=== PATIENT | female | born 1965 | race Caucasian/White ===

== ENCOUNTER 2017-12-04 10:00 | Outpatient (RCR) | payer BC, SELFPAY ==
--- NOTE | 2017-11-14 10:00 | PTTR_ITS ---
DATE: 11/14/17 SUBJECTIVE: Patient reports that she feels like the kineseotape has been helping. She was still wearing it upon arrival. Rates her pain a 4/10 overall over area of anatomical snuff box. Has not attempted to use a knife yet. States she has been doing her HEP. Has not been icing at home. Patient educated that she should be icing it at home 2-3 times per day and when its aggravated. OBJECTIVE: Manual therapy: ([id number]). Performed STM right lateral wrist over anatomical snuff box into forearm. Cross friction massage over APL and EPB tendons. Instructed patient to perform self cross friction massage at home for desensitization. Stretching into wrist flexion, extension, radial deviation, and ulnar deviation. Radiocarpal anterior and posterior grade 2 joint mobilizations. Performed kinseotaping technique for De Quervain s at end of session. Declined need for cryotherapy post session and states she would ice at home. Ultrasound - (x 8 mins) - [id number]: Phonophoresis with dexamethasone over right anatomical snuff box, 3MHz, 50% duty cycle, 1.0 W/cm2. Direct treatment time: 30 minutes Total treatment time: 30 minutes Jenn Grullon, SPT Joceline Ayala, MPT
--- NOTE | 2017-11-18 15:00 | PTTR_ITS ---
DATE: November 18, 2017 SUBJECTIVE: Radha notes that she really feels that the tape has been really helpful. She is noting less overall irritation. She is able to do more with less pain. Is very happy with her progress at this time. OBJECTIVE: Manual therapy: ([id number]). Radiocarpal distractions. CMC distractions. Soft tissue mobilization throughout the right radial aspect of the forearm. CFM to the APL, EPB tendons. Soft tissue stretching to the wrist flexors/extensors and into ulnar deviation. No complaints of pain. Post session Kinesiotape to the right for DeQuervain's. Ultrasound - (x 8 mins) - [id number]: Performed to the right anatomical snuff box over EPB/ APL tendons at 3 mgh 1.0 stephen per cm sq with dexamethasone. Ended with cryotherapy to the right wrist post session for 10 minutes. Will continue to monitor and progress accordingly via symptom level. Direct treatment time: 30 minutes Total treatment time: 40 minutes
--- NOTE | 2017-11-22 15:15 | PTTR_ITS ---
DATE: November 22, 2017 SUBJECTIVE: Radha notes that she has had a couple of twinges since her last appt. She is unsure what she was doing however notes that it was definitely activity produced. Pain was quick and sharp, and not longstanding. Otherwise continues to note overall improvements and continues to feel that the tape is helping with her functional tasks. OBJECTIVE: Manual therapy: ([id number]). Radiocarpal distractions, followed by CMC mobilizations. STM throughout the radial aspect of the wrist and forearm of the right UE. CFM to the APL and EPB tendons. Soft tissue stretching to the wrist flexors and extensors followed by ulnar deviation. Minimal to no irritation noted. Ultrasound - (x 8 mins) - [id number]: Performed to the anatomical snuff region on the right forearm 3 mgh 1. 0 stephen per cm sq with dexamethasone 50% duty cycle. Declined need of modality post session. Wanted to ice at home for had her sister waiting for her in the car. Will follow up 2x next week. Continue with modalities, mobilization and begin some light stabilization within tolerance. Direct treatment time: 30 minutes Total treatment time: 30 minutes
--- NOTE | 2017-11-25 09:30 | PTTR_ITS ---
DATE: November 25, 2017 SUBJECTIVE: Radha reports that she does feel that she is seeing improvements. However did have an episode of irritation while trying to fasten her seatbelt with the right hand. This caused a sharp jolt of pain into the radial aspect of the wrist and thumb. Continues to feel that the tape helps significantly with functional ADL's OBJECTIVE: Manual therapy: ([id number]). CMC mobilization all planes. Radiocarpal joint distractions, dorsal and volar glides Gr II/III/ P/AAROM performed throughout all planes. Soft tissue stretching to the wrist flexors and extensors along with ulnar deviation. STM throughout the entire radial aspect of the right wrist. CFM to the APL/EPB tendons. Applied kinesiotape to the APL/EPB tendons post session. Ultrasound - (x 8 mins) - [id number]: 3mgh 50% duty cycle 1.0 stephen per cm sq over the APL/EPB tendons of the right wrist with dexamethasone. Cryotherapy applied to the right wrist post session for 10 minutes Direct treatment time: 30 minutes Total treatment time: 40 minutes
--- NOTE | 2017-12-04 10:00 | PTTR_ITS ---
DATE: 12/04/17 SUBJECTIVE: Indicated she was at a restaurant over the weekend and had severe pain in her right wrist when she went to flush the toilet. Asked the take out waiter for ice to apply to her wrist while waiting for her meal. Otherwise her wrist has been feeling pretty good. OBJECTIVE: Manual therapy: ([id number]). Mobilization of right wrist including CFM to EPB /APL, mobilization of CMC jt, STM to radial aspect of forearm, radiocarpal distraction and soft tissue stretching of wrist musculature into flexion, extension and ulnar deviation. Able to actively radial deviate without complaints of discomfort. * x Ultrasound - (x 8 mins) - [id number]: ultrasound x 8 minutes to right anatomical snuff box region at 3 mHz at 1.0 w/cm2. Reapplication of Kinesio tape for DeQuervains. Direct treatment time: 20 minutes Total treatment time: 28 minutes
== END 2017-12-13 23:59 | disposition home or self-care (01) ==
LOC: PT 10:00
PROVIDERS: PCP Nurse Practitioner Family; Referring Provider Nurse Practitioner Family; Visit Provider Nurse Practitioner Family
DX: M65.841 Other synovitis and tenosynovitis, right hand (principal)
CPT/HCPCS: 97035; 97140

== ENCOUNTER 2018-03-24 06:18 | Day surgery (SDC) | payer BC, SELFPAY ==
--- NOTE | 2018-03-24 06:14 | W.COLOREPORT ---
Date of service: 03/24/18 Time of Service: 07:30 Colonoscopy Report Date of procedure: 03/24/18 Pre-op diagnosis general: Colon Cancer screening Procedure: Flexible sigmoidoscopy Surgeon: Nilda Perez Anesthesia proc note operative: MAC (Hailee Galvez CRNA/ ASA 2) Estimated blood loss (mL): 0 Pathology: none sent Complications: None Disposition: same day Indications: Mrs. Obando was seen in the office for a screening colonoscopy. Risks, benefits and complications were reviewed with her and she wished to proceed. No guarantees were given or implied. Prep: Miralax/Dulcolax Findings: Unfortunately the prep did not work. There was stool throughout the colon. I went up as far as the splenic flexure and there was a lot of stool both liquid and solid throughout. The colonoscopy was aborted at this time. Patient will need to be rescheduled and have a 2 day prep. Procedure Description: After informed consent was obtained the patient was taken to the procedure room and placed in a left decubitous position. Monitors were applied and a time out was done. The patients name, date of , procedure, allergies to medications and metal in their body was reviewed. The patient was then sedated. Once sedated and comfortable a rectal exam was done. External exam was normal. Internal exam revealed a normal sphincter tone and no palpable masses. The scope was then introduced and retrofelexed. No internal hemorrhoids were identified. There was liquid and solid stool noted in the rectum. The scope was then advanced to the splenic flexure and there was solid and liquid stool throughout. There was no way that I could find any polyps unfortunately. The scope was removed and the patient was woken up and taken back to Same day surgery in stable condition. Follow up: The patient will need to come back to the office and we will set her up with a 2 day prep.
--- NOTE | 2018-03-24 06:16 | HPE_ITS ---
Date of service: 03/24/18 Time of Service: 07:00 Assessment and Plan (1) Encounter for screening colonoscopy: Current visit: No Status: Acute P\\ Colonoscopy under sedation Risks, benefits and complications have been reviewed. Complications include but are not limited to bleeding, pain, perforation, missed small lesion/ polyp, sore throat, aspiration and adverse reaction to the medications. Questions were entertained and answered to their satisfaction and they wished to proceed. No guarantees were given or implied. History of Present Illness Narrative: 52 y/o female presents for her first colonoscopy screening pre-op. She denies a family history of colon cancer. She denies any changes in bowel habits including bloody or black tarry stools, abdominal pain, diarrhea or constipation. He denies constitutional symptoms. Denies use of marijuana or any other recreational or illegal drugs. She denies chest pain, palpitations, dyspnea or dyspnea with exertion. She denies prior history or family history of adverse reactions or complications with anesthesia. There have been no changes in her health since she was last seen in the office. The prep unfortunately did not start working until 7 or 8 last night. Review of Systems Cardiovascular Denies chest pain, Denies chest pain at rest, Denies syncope, Denies rapid heart rate, Denies irregular heart rhythm, Denies dyspnea and Denies dyspnea on exertion Respiratory Denies chest congestion, Denies cough, Denies dyspnea and Denies dyspnea on exertion Neurologic Denies syncope PFSH Family History Mother Essential hypertension Heart disease Hyperlipidemia Father Schatzki's ring Sister Diabetes Essential hypertension Depression Hyperlipidemia Brother No problems noted. Grandfather Personal history of malignant neoplasm Grandfather Alcohol abuse Grandmother No problems noted. Grandmother Alcohol abuse Son Asthma Son No problems noted. Daughter Depression Mental disorder Daughter Depression Mental disorder Asthma Daughter Asthma section Tonsillectomy and adenoidectomy Family History Mother Essential hypertension Heart disease Hyperlipidemia Father Schatzki's ring Sister Diabetes Essential hypertension Depression Hyperlipidemia Brother No problems noted. Grandfather Personal history of malignant neoplasm Grandfather Alcohol abuse Grandmother No problems noted. Grandmother Alcohol abuse Son Asthma Son No problems noted. Daughter Depression Mental disorder Daughter Depression Mental disorder Asthma Daughter Asthma Social History Smoking/Tobacco Use Status: Former Tobacco Use Surgical History section Tonsillectomy and adenoidectomy Social History Smoking/Tobacco Use Status: Former Tobacco Use Meds Home Medications Medication Instructions Recorded Confirmed Type levonorgestrel [Mirena] 1 ea INTRAUTERINE ONCE #1 implant 10/02/13 03/24/18 History Adjuvant As01b/Pf, Vial 1 of 2 0.5 ml IM ONCE #2 vial 10/30/17 Clinic [Shingrix Adjuvant Component] escitalopram oxalate 20 mg PO DAILY #90 tab-cap 10/30/17 03/24/18 Rx multivitamin [Daily Multi-Vitamin] 1 tab PO DAILY 03/21/18 03/24/18 History Allergies Allergy/AdvReac Type Severity Reaction Status Date / Time No Known Allergies Allergy Verified 03/24/18 06:43 Exam Resp Effort & Inspection: normal respiratory effort Auscultation: clear to auscultation bilaterally Cardio Rate: regular rate Rhythm: regular rhythm Heart Sounds: no gallops, no murmurs and no rubs
[2018-03-24 06:20] VITALS: BP 118/69; PULSE 85; RESP 17; TEMP 36.9; O2SAT 95
--- NOTE | 2018-03-24 06:20 | PDOC.DSDIS_ITS ---
Discharge Plan Disposition Patient Disposition: HOME Condition: Good Discharge Details Reason For Visit: SCREENING Attending Provider: Nilda Perez Primary Care Provider: Lina Villeda Home Meds and New Rx's Prescriptions: Continue levonorgestrel [Mirena] 1 EACH intrauterine device 1 ea Intrauterine ONCE Qty: 1 RF: 0 escitalopram oxalate 20 MG tablet 20 mg PO DAILY Qty: 90 RF: 4 Adjuvant As01b/Pf, Vial 1 of 2 [Shingrix Adjuvant Component] 0.5 ML VIAL 0.5 ml IM ONCE Qty: 2 RF: 0 multivitamin [Daily Multi-Vitamin] Tablet 1 tab PO DAILY RF: 0 Discharge Instructions Instructions: Colonoscopy (DC) Additional Instructions: Findings: Unfortunately the prep did not work for you. There was too much solid and liquid stool for me to be able to do a colonoscopy. Follow up: I will have my office call you so we can reschedule you. We will need to do a 2 day prep so that we can make sure your bowel is clean. Please call if you develop: fevers >101.5 Nausea or vomiting Abdominal pain that is not transient DAY SURGERY UNIT POST COLONOSCOPY INSTRUCTIONS 1. Because there will be medication in your system for the next 24 hours, you may feel a little sleepy. Your coordination will be affected. Therefore: a. Do not drive or operate dangerous equipment for 24 hours. b. Do not drink alcohol beverages for 24 hours (not even beer). c. Plan to go home and rest for the day. 2. Generally there are no restrictions on your activity after a day or so has gone by, but you may feel a bit fatigued for a few days. 3 After you arrive home you may have a light meal and return to a normal diet as you can tolerate it without feeling sick to your stomach. 4. After surgery, you may feel pain or discomfort. This should be only transient , but if it persists please contact your doctor. 5. If there are any questions regarding the findings of your procedure, please feel free to contact your doctor. 6. If you are unable to contact your doctor with a problem, contact the hospital at [phone]. 7. Continue all your regular medications unless directed otherwise. I understand the above instructions and have no questions. Signature of Patient or Responsible Adult Escort Date/Time Name of Responsible Adult Escort Signature of Nurse Date/Time Activity:: Activity as Tolerated Diet:: As Tolerated Discharge Orders Discharge Orders: Discharge Order (Routine); Ordered 03/24/18 Ordered By: Nilda Perez DS: Diagnosis Discharge Diagnosis (1) Encounter for screening colonoscopy: Status: Acute
[2018-03-24] MEDS: Lactated Ringers 1,000 ML 80 ML IV (06:50)
[2018-03-24 08:05] VITALS: BP 120/69; PULSE 69; RESP 16; TEMP 36.9; O2SAT 96
== END 2018-03-24 08:21 | disposition home or self-care (01) ==
PROVIDERS: PCP Nurse Practitioner Family; Visit Provider Surgery
PROC: 0DJD8ZZ Inspection of Lower Intestinal Tract, Via Natural or Artificial Opening Endoscopic (ICD-10-PCS; CPT 45378; principal; 2018-03-24 07:30)
DX: Z12.11 Encounter for screening for malignant neoplasm of colon (principal)
CPT/HCPCS: 45378; NC

== ENCOUNTER 2018-11-07 10:15 | Outpatient (CLI) | payer BC, SELFPAY ==
[2018-11-07 13:33] LABS: ALT 29 U/L (12-78); AST 25 U/L (15-37); Albumin 4.2 g/dL (3.4-5.0); Alkaline Phosphatase 101 U/L (46-116); Anion Gap 9.9 mmol/L (3-11); BUN 26 mg/dL (7-18); Bilirubin, Total 0.4 mg/dL (0.2-1.0); CO2 26.1 mmol/L (21.0-32.0); CREATININE 1.01 mg/dL (0.55-1.02); Calcium 9.4 mg/dL (8.5-10.1); Calculated LDL 190 mg/dL; Chloride 106 mmol/L (98-107); Cholesterol 268 mg/dL (50-200); Estimated GFR 57.12 (mL/min/1.73m2); Glucose 101 mg/dL (70-100); HDL Cholesterol 33 mg/dL (40-60); Potassium 4.7 mmol/L (3.5-5.1); Sodium 142 mmol/L (136-145); Total Protein 7.8 g/dL (6.4-8.2); Triglyceride 226 mg/dL (30-150)
[2018-11-07 13:55] LABS: Hemoglobin A1C 5.7 % (4.5-6.2)
== END 2018-11-07 10:35 ==
PROVIDERS: PCP Nurse Practitioner Family; Visit Provider Nurse Practitioner Family
DX: E78.5 Hyperlipidemia, unspecified (principal)
CPT/HCPCS: 36415; 80053; 80061; 83721; 83036

== ENCOUNTER 2019-03-09 09:59 | Day surgery (SDC) | payer BC, SELFPAY ==
--- NOTE | 2019-03-09 06:48 | W.UPDATEHP ---
Date of service: 03/09/19 Time of Service: 10:41 Updated H&P Refer to Most Recent Clinic Note/H&P Dated: 02/19/19 H&P was reviewed,patient examined No change has occured in patient's condition since last H&P completed
--- NOTE | 2019-03-09 06:48 | W.COLOREPORT ---
Date of service: 03/09/19 Time of Service: 10:54 Colonoscopy Report Date of procedure: 03/09/19 Pre-op diagnosis general: Colon CAncer Screening Post-op diagnosis procedure note: same Procedure: Colonoscopy Surgeon: Nilda Perez Anesthesia proc note operative: other (General/ ASA 2/ Yousuf Humphrey, NANCIE) Estimated blood loss (mL): 0 Pathology: none sent Complications: None Disposition: same day Indications: The patient is here for Colonoscopy pre-op. Her last screening was in 2018 and was unsuccessful secondary to poor prep. She has no family history of colon cancer. She has not had any bowel habit changes. -Discussed colonoscopy bowel prep as well as the procedure. Discussed possible complications of the procedure to include bleeding, pain, perforation, missed small lesion/polyp, sore throat, aspiration and adverse reaction to the medications. Questions were answered to patient?s satisfaction. No guarantees were implied or given. Prep: Miralax/Dulcolax Procedure Start Time: :54 Procedure End Time: 11:12 Retraction Time: 12 minutes Findings: Normal colon Procedure Description: After informed consent was obtained the patient was taken to the procedure room and placed in a left decubitous position. Monitors were applied and a time out was done. The patients name, date of , procedure, allergies to medications and metal in their body was reviewed. The patient was then sedated. Once sedated and comfortable a rectal exam was done. External exam was normal. Internal exam revealed a normal sphincter tone and no palpable masses. The scope was then introduced and retro-flexed. No internal hemorrhoids, masses or polyps were identified. The scope was then advanced to the cecum without difficulty. The TI and appendiceal orifice were identified. The prep was good. The scope was then slowly retracted over 12 minutes back into the rectum. There were no polyps or diverticula. The scope was removed and the patient was woken up and taken back to Same day surgery in stable condition. The patient tolerated the procedure well and there were no immediate complications. Follow up: The patient should follow up in 10 years unless they develop changes in bowel habits or other new gastrointestinal complaints.
--- NOTE | 2019-03-09 06:49 | W.PM.DSUDISC ---
Discharge Plan Disposition Patient Disposition: HOME Condition: Good Discharge Details Reason For Visit: Colon Cancer Screening Attending Provider: Nilda Perez Primary Care Provider: Lina Villeda Home Meds and New Rx's Prescriptions: Continued Shingrix (PF) 50 mcg/0.5 mL suspension for reconstitution 0.5 ml IM ONCE Qty: 1 RF: 0 escitalopram oxalate 20 mg tablet 20 mg PO DAILY Qty: 90 RF: 4 rosuvastatin 10 mg tablet 10 mg PO DAILY Qty: 90 RF: 4 multivitamin [Daily Multi-Vitamin] Tablet 1 tab PO DAILY RF: 0 Discontinued polyethylene glycol 3350 17 gram/dose powder 238 g PO ONCE Qty: 238 RF: 0 bisacodyl [Dulcolax (bisacodyl)] 5 mg tablet,delayed release (DR/EC) 5 mg PO ONCE Qty: 4 RF: 0 magnesium citrate [Citrate of Magnesia] Solution 300 ml PO ONCE Qty: 296 RF: 0 Discharge Instructions Additional Instructions: Findings: Normal Colonoscopy Follow up: 10 years Please call if you develop: fevers >101.5 Nausea or Vomiting Abdominal pain that is not transient DAY SURGERY UNIT POST ENDOSCOPY INSTRUCTIONS 1. Because there will be medication in your system for the next 24 hours, you may feel a little sleepy. Your coordination will be affected. Therefore: a. Do not drive or operate dangerous equipment for 24 hours. b. Do not drink alcohol beverages for 24 hours (not even beer). c. Plan to go home and rest for the day. 2. Generally there are no restrictions on your activity after a day or so has gone by, but you may feel a bit fatigued for a few days. 3 After you arrive home you may have a light meal and return to a normal diet as you can tolerate it without feeling sick to your stomach. 4. After surgery, you may feel pain or discomfort. This should be only transient, but if it persists please contact your doctor. 5. If there are any questions regarding the findings of your procedure, please feel free to contact your doctor. 6. If you are unable to contact your doctor with a problem, contact the hospital at [phone]. 7. Continue all your regular medications unless directed otherwise. I understand the above instructions and have no questions. Signature of Patient or Responsible Adult Escort Date/Time Name of Responsible Adult Escort Signature of Nurse Date/Time Activity:: Activity as Tolerated Diet:: As Tolerated Discharge Orders Discharge Orders: Discharge Order (Routine); Ordered 03/09/19 Ordered By: Nilda Perez DS: Diagnosis Discharge Diagnosis (1) S/P colonoscopy: Status: Acute
[2019-03-09 10:23] VITALS: BP 130/66; PULSE 97; RESP 16; TEMP 36.3; O2SAT 96
--- NOTE | 2019-03-09 10:41 | HPE_ITS ---
Date of service: 03/09/19 Time of Service: 10:41 Updated H&P Refer to Most Recent Clinic Note/H&P Dated: 02/19/19 H&P was reviewed,patient examined No change has occured in patient's condition since last H&P completed cc: Dictated by: GELY BLANK MD Dictated: 03/09/19Time: 647 <Electronically signed by Nilda Blank M.D.> Date: 05/09/18 1041 Date: Date: Transcribed Date: 03/09/19 Transcribed Time: 647By: YUAN
[2019-03-09] MEDS: Lactated Ringers 1,000 ML 80 ML IV (10:42)
[2019-03-09 12:20] VITALS: BP 100/62; PULSE 67; RESP 17; TEMP 36.3; O2SAT 98
== END 2019-03-09 12:40 | disposition home or self-care (01) ==
LOC: SUR 09:59
PROVIDERS: PCP Nurse Practitioner Family; Visit Provider Surgery
PROC: 0DJD8ZZ Inspection of Lower Intestinal Tract, Via Natural or Artificial Opening Endoscopic (ICD-10-PCS; CPT 45378; principal; 2019-03-09 10:45)
DX: Z12.11 Encounter for screening for malignant neoplasm of colon (principal)
CPT/HCPCS: 45378; J2250; J3010

== ENCOUNTER 2019-03-16 00:55 | Outpatient (CLI) | payer BC, SELFPAY ==
--- NOTE | 2019-03-16 12:40 | DI.MAMMO_ITS ---
EXAM: MG MAMMO SCREENING CLINICAL HISTORY: SCREENING, Z12.31 TECHNIQUE: Bilateral full field digital CC and MLO mammographic images were obtained with 3D tomosyn thesis and utilizing computer aided detection (CAD). COMPARISON: Available for comparison. FINDINGS: Masses/Architectural Distortion: None seen. Microcalcifications: No suspicious pleomorphic-type are seen. Skin Thickening/Nipple Retraction: None. IMPRESSION: 1. No significant interval change with no specific features of malignancy noted. 2. Unless there is more urgent need, screening mammography is recommended, as per [employer] guidelines. ACR BI-RAD Category- 1 Negative Breast Density - Category B - Scattered areas of fibroglandular density A negative radiographic report should not delay biopsy if a dominant or clinically suspicious mass is present. Up to ten percent of cancers are not identified on mammography. A negative report may reinforce clinical impression. Adenosis and dense breasts may obscure an underlying neoplasm. False positive reports average 6 to 10%. Patient will receive a letter notifying them of these results.
== END 2019-03-16 01:15 ==
PROVIDERS: PCP Nurse Practitioner Family; Visit Provider Obstetrics & Gynecology
DX: Z12.31 Encounter for screening mammogram for malignant neoplasm of breast (principal)
CPT/HCPCS: 77063; 77067

== ENCOUNTER 2019-11-09 13:45 | Outpatient (REF) | payer BC, SELFPAY ==
[2019-11-09 15:22] LABS: Anion Gap 10.5 mmol/L (3-11); CO2 25.5 mmol/L (21.0-32.0); CREATININE 1.18 mg/dL (0.55-1.02); Calcium 9.1 mg/dL (8.5-10.1); Chloride 105 mmol/L (98-107); Estimated GFR 47.56 (mL/min/1.73m2); Glucose 133 mg/dL (74-106); Potassium 4.2 mmol/L (3.5-5.1); Sodium 141 mmol/L (136-145)
[2019-11-09 15:39] LABS: BUN 25 mg/dL (7-18); Calculated LDL 66 mg/dL (<100); Cholesterol 171 mg/dL (<200); HDL Cholesterol 28 mg/dL (40-60); Triglyceride 389 mg/dL (<150)
[2019-11-09 15:56] LABS: Hemoglobin A1C 5.9 % (3.8-5.6)
== END 2019-11-09 14:05 ==
LOC: LBN 13:45
PROVIDERS: PCP Nurse Practitioner Family; Visit Provider Nurse Practitioner Family
DX: E78.5 Hyperlipidemia, unspecified (principal)
CPT/HCPCS: 80048; 80061; 83036

== ENCOUNTER 2020-03-17 01:05 | Outpatient (CLI) | payer BC, SELFPAY ==
--- NOTE | 2020-03-17 16:08 | DI.MAMMO_ITS ---
EXAM: MG MAMMO SCREENING CLINICAL HISTORY: screening,Z12.39. TECHNIQUE: Bilateral full field digital CC and MLO mammographic images were obtained with 3D tomosyn thesis and utilizing computer aided detection (CAD). COMPARISON: Prior mammograms dating back to 2013, the most recent being March 2019. FINDINGS: There are no new dominant masses nor malignant appearing microcalcification groups. Benign microcalci fications are noted. There is no new architectural distortion nor skin thickening-retraction. IMPRESSION: No radiographic evidence of malignancy. BI-RADS Category 1 - Negative Breast Density - Category B - Scattered areas of fibroglandular density Breast density Category C or D implies that the patient has dense breast tissue. Dense breast tissue can make it harder to find cancer on a mammogram. Dense breast tissue is also associated with an incr eased risk of breast cancer. This information about the result of the mammogram report was provided to the patient to raise their awareness. Use this report when you speak with the patient about their risks for breast cancer, which includes their family history. At that time, you may recommend additional screening tests (Ultrasoun d or MRI) as these tests may add significant information. A negative radiographic report should not delay biopsy if a dominant or clinically suspicious mass is present. Up to ten percent of cancers are not identified on mammography. A negative report may reinforce clinical impression. Adenosis and dense breasts may obscure an underlying neoplasm. False positive reports average 6 to 10%. Patient will receive a letter notifying them of these results.
== END 2020-03-17 01:25 ==
PROVIDERS: PCP Nurse Practitioner Family; Visit Provider Nurse Practitioner Family
DX: Z12.31 Encounter for screening mammogram for malignant neoplasm of breast (principal)
CPT/HCPCS: 77063; 77067

== ENCOUNTER 2020-05-25 10:04 | Outpatient (CLI) | payer BC, SELFPAY ==
[2020-05-26 14:34] LABS: COVID-19 RT-PCR UVMMC Result Negative (Negative)
== END 2020-05-25 10:05 | disposition home or self-care (01) ==
LOC: LBO 10:06
PROVIDERS: PCP Nurse Practitioner Family; Visit Provider Physician Assistant
DX: R09.81 Nasal congestion (principal)
CPT/HCPCS: U0003

== ENCOUNTER 2020-07-18 21:25 | Outpatient (REF) | payer BC, SELFPAY ==
[2020-07-18 21:43] LABS: Abs Immature Grans 0.04 10^3/uL (0.0-0.06); Absolute Basophil Count 0.08 10^3/uL (0.0-0.2); Absolute Eosinophil Count 0.29 10^3/uL (0.0-0.7); Absolute Monocyte Count 0.69 10^3/uL (0.1-0.8); Absolute Neutrophil Count 3.43 10^3/uL (1.2-6.7); Basophils % 1.1; Eosinophils % 4.1; HCT 32.8 % (36.0-46.0); HGB 10.3 g/dL (11.2-15.7); Immature Grans % 0.6; Lymphocytes % 35.6; MCH 27.8 pg (27.0-33.0); MCHC 31.4 % (32.0-36.0); MCV 88.4 fL (80-95); MPV 9.6 fL (8.0-11.0); Monocytes % 9.8; Neutrophils % 48.8; Nucleated RBC 0 %; Platelet Count 294 10^3/uL (130-400); RBC 3.71 10^6/uL (3.93-5.22); RDW 16.7 % (11.7-14.6); RDW-SD 53.7 fL; WBC 7.03 10^3/uL (4.4-10.8)
[2020-07-18 21:56] LABS: ALT 44 U/L (14-59); AST 39 U/L (15-37); Albumin 4.5 g/dL (3.4-5.0); Alkaline Phosphatase 126 U/L (46-116); Anion Gap 11.1 mmol/L (3-11); BUN 17 mg/dL (7-18); Bilirubin, Total 0.5 mg/dL (0.2-1.0); CO2 25.9 mmol/L (21.0-32.0); CREATININE 1.1 mg/dL (0.55-1.02); Chloride 102 mmol/L (98-107); Estimated GFR 51.38 (mL/min/1.73m2); Glucose 97 mg/dL (74-106); Potassium 3.7 mmol/L (3.5-5.1); Sodium 139 mmol/L (136-145); Total Protein 8.2 g/dL (6.4-8.2)
[2020-07-18 22:09] LABS: Bilirubin Negative (Negative); Blood Large (Negative); Clarity Cloudy (Clear); Glucose Negative (Negative); Ketones Negative (Negative); Leukocyte Esterase Small (Negative); Nitrite Negative (Negative); Urobilinogen 0.2 EU/dL (Up TO 0.2); pH 5.5 (5-8)
[2020-07-18 22:20] LABS: RBC >50 HPF (0-2)
[2020-07-18 22:21] LABS: C & S Indicated? C&S Done As Ordered
== END 2020-07-18 21:26 | disposition home or self-care (01) ==
LOC: LBN 21:25
PROVIDERS: PCP Nurse Practitioner Family; Visit Provider Nurse Practitioner Family
DX: R31.9 Hematuria, unspecified (principal)
CPT/HCPCS: 80053; 87077; 81003; 81015; 85025; 87086; 87186

== ENCOUNTER 2020-07-19 17:24 | Emergency (ER) | payer BC, SELFPAY ==
[2020-07-19 17:26] VITALS: BP 139/77; PULSE 84; RESP 20; TEMP 36.6; O2SAT 99
--- NOTE | 2020-07-19 17:30 | DI.CT_ITS ---
EXAM: CT RENAL COLIC WO CLINICAL HISTORY: Left side Flank Pain R/O stone/Pyelo. TECHNIQUE: Imaging Protocol: Axial computed tomography images with coronal and sagittal reformatted images were created and reviewed. CONTRAST MATERIAL: Noncontrast COMPARISON: CT ABD PELVIS WITH CONTRAST from 08/04/2016 FINDINGS: ABDOMEN: Lung Bases: Normal where visualized. Liver: Severe fatty infiltration.. No measurable mass. Gallbladder and biliary tract: No radiodense calculus or dilation. Pancreas: Normal density, no calcifications or inflammatory process. Spleen: Normal. Kidneys: No masses seen. 5 millimeter stone upper left ureter causing mild to moderate left hydroneph rosis. Additional 1 millimeter nonobstructing stone is noted near the lower pole of the left kidney. The right kidney appears normal. Adrenal glands: No masses seen. Abdominal Aorta: Abdominal portion non-dilated. Minimal calcification. PELVIS: Bladder: Symmetric distention, no gross wall thickening. Bowel: No obstruction or bowel wall thickening. Normal appendix. Peritoneal cavity: No ascites, collection or mesenteric inflammatory response. Reproductive: Mildly enlarged retroverted uterus with fibroids. Bones: Within normal limits. IMPRESSION: Ehbl-ld-eqzouapd hydronephrosis secondary to a 5 millimeter stone in the upper left ureter. Addition al 1 millimeter nonobstructing stone near the lower pole of the left kidney. Severe hepatic steatosi s. RADIATION DOSE DELIVERED: 887.8mGy.cm Total DLP DATA REPOSITORY: All CT scans at this facility are submitted to the National Radiology Data Registry (NRDR) Dose Index Registry (DIR) with the [employer] (A[employer]). RADIATION OPTIMIZATION: All CT scans at this facility use at least one of these dose optimization te chniques: automated exposure control; mA and/or kV adjustment per patient size (includes targeted exa ms where dose is matched to clinical indication); or iterative reconstruction.
--- NOTE | 2020-07-19 17:40 | W.ED.GENAD ---
Discharge Plan Disposition Patient Disposition: HOME Condition: Stable Discharge Details Clinical Impression: Left ureteral calculus Primary Care Provider: Lina Villeda ED Provider: Delia Garcia Home Meds and New Rx's Prescriptions: New tamsulosin 0.4 mg capsule 0.4 mg PO QHS 7 Days Qty: 7 RF: 0 ketorolac 10 mg tablet 10 mg PO TID PRN (Reason: pain) 5 Days Qty: 15 RF: 0 Continued escitalopram oxalate 20 mg tablet 20 mg PO DAILY Qty: 90 RF: 4 rosuvastatin 10 mg tablet 10 mg PO DAILY Qty: 90 RF: 4 multivitamin [Daily Multi-Vitamin] Tablet 1 tab PO DAILY RF: 0 Discharge Instructions Instructions: Kidney Stones (ED), How to Strain Your Urine (ED) Additional Instructions: Please strain all your urine. You are placed on a care management list for follow-up within the week with urology. Please take the medication as directed. A prescription for Flomax and Toradol was sent to your pharmacy. Follow up with primary care provider in 3-5 days. Return to ED sooner if any fever, worsening vomiting, or concerns. Increase oral fluids. Referrals: Lina Villeda NP [Primary Care Provider] - Shawn Brand MD [ [facility] STAFF PHYSICIAN] - Yi Munoz DNP [NURSE PRACTITIONER] - Medical Decision Making 55-year-old female presents the ER chief complaint of left flank pain which began approximately 5 days ago. She noticed dark urine initially and then began with flank pain worsening few days ago. Was seen at [facility] yesterday had labs and urine done and an outpatient renal ultrasound scheduled. She was instructed to present to the ER for any vomiting or worsening. She reports intermittent waxing and waning pain to her left flank max pain is 10 at this moment is approximately 3 out of 10. She did vomit earlier today. CBC, CMP, urinalysis ordered at this time CT abdomen pelvis without contrast. CBC is largely within normal limits, no leukocytosis, anion gap 12.3, BUN is 23 creatinine 1.7, GFR 31, urinalysis shows large blood small bilirubin greater than 50 RBCs no leukocytes no nitrites. Culture is not indicated at this time. CT abdomen pelvis shows a 4 mm left ureter stone with some associated hydronephrosis. AllCOMPARISON: CT ABD PELVIS WITH CONTRAST 08/04/2016 9:57 PM FINDINGS: Liver: The liver is diffusely decreased in density. Gallbladder and bile ducts: Normal. No calcified stones. No ductal dilation. Pancreas: Normal. No ductal dilation. Spleen: Normal. No splenomegaly. Adrenal glands: Normal. No mass. Kidneys and ureters: There is a 4 mm calculus within the left ureter at the L4 level with secondary left hydroureter and hydronephrosis. There is also a 1 mm nonobstructing calculus within the left kidney. The right kidney appears normal with no evidence of hydronephrosis. Stomach and bowel: Unremarkable. No obstruction. No mucosal thickening. Appendix: No evidence of appendicitis. Intraperitoneal space: Unremarkable. No free air. No significant fluid collection. Vasculature: The aorta demonstrates mild atherosclerotic calcification. Lymph nodes: Unremarkable. No enlarged lymph nodes. Urinary bladder: Unremarkable as visualized. Reproductive: The uterus appears unremarkable. No adnexal masses are seen. Bones/joints: Unremarkable. No acute fracture. Soft tissues: Unremarkable. IMPRESSION: 1. 4 mm calculus within the left ureter with associated left hydroureter and hydronephrosis. 2. Nonobstructing left nephrolithiasis. 3. Fatty liver disease. Discussed CT results with patient verbalized understanding. Was given tamsulosin here in department and prescription for tamsulosin. Toradol tablet prescribed. Discussed close follow-up with urology and strict return instructions, verbalized understanding. Patient remained hemodynamically stable, alert and oriented nontachycardic throughout stay. This text was generated using [employer]ach[employer] system, please disregard any oddities of phrase or misspellings. HPI General Mode of arrival: ambulatory. Date/Time Provider Initiated Documentation: 07/19/20 17:38. Limitations to Documentation: no limitations. Information obtained by: patient. HPI Narrative: 55-year-old female presents the ER chief complaint of left flank pain which began approximately 5 days ago. She noticed dark urine initially and then began with flank pain worsening few days ago. Was seen at [facility] yesterday had labs and urine done and an outpatient renal ultrasound scheduled. She was instructed to present to the ER for any vomiting or worsening. She reports intermittent waxing and waning pain to her left flank max pain is 10 at this moment is approximately 3 out of 10. She did vomit earlier today. Related Data Home Medications Medication Instructions Recorded Confirmed multivitamin [Daily Multi-Vitamin] 1 tab PO DAILY 03/21/18 07/19/20 escitalopram oxalate 20 mg tablet 20 mg PO DAILY #90 tab-cap 11/09/19 07/19/20 rosuvastatin 10 mg tablet 10 mg PO DAILY #90 tab 11/09/19 07/19/20 ketorolac 10 mg PO TID PRN 5 Days #15 tab 07/19/20 tamsulosin 0.4 mg PO QHS 7 Days #7 cap 07/19/20 Previous Rx's Medication Instructions Recorded escitalopram oxalate 20 mg tablet 20 mg PO DAILY #90 tab-cap 11/09/19 rosuvastatin 10 mg tablet 10 mg PO DAILY #90 tab 11/09/19 ketorolac 10 mg PO TID PRN 5 Days #15 tab 07/19/20 tamsulosin 0.4 mg PO QHS 7 Days #7 cap 07/19/20 Allergies Allergy/AdvReac Type Severity Reaction Status Date / Time dog dander Allergy Mild Verified 07/19/20 17:31 General Stated Complaint: FlankPain NATHANIEL: 3 Review of Systems Narrative: Constitutional: Negative for weight loss, alert and oriented, well groomed, normal body habitus, appears comfortable. HEENT: Denies trauma, headaches, blurry vision, nasal discharge, sore throat, trouble swallowing. Chest: Denies chest pain, palpitations, irregular rhythm, hypertension. Respiratory: Denies Shortness of breath, cough, hemoptysis. GI: Denies abdominal pain, diarrhea, constipation. Positive nausea vomiting x1. : Denies dysuria, rectal bleeding. Positive dark urine, x5 days positive left flank pain. Neuro: Denies dizziness, blurry vision, weakness, syncope, headache or facial numbness. Hematologic: Denies easy bruising, intolerance to heat or cold, hair loss. FOR[facility]LY [facility], [facility] Medical History (Updated 07/19/20 @ 18:52 by Delia Garcia) Depressive disorder GERD (gastroesophageal reflux disease) Hyperlipidemia Osteoarthritis Prediabetes Surgical History History of section (04/04/87) S/P colonoscopy (03/09/19) S/P tonsillectomy and adenoidectomy Family History Mother Heart disease Hyperlipidemia Hypertension Glaucoma Father Dementia Sister Hyperlipidemia Hypertension Type 2 diabetes mellitus Depression Brother No problems noted. Son Asthma Son No problems noted. Daughter Depression Daughter Asthma Depression Daughter Asthma Paternal Grandfather Alcohol abuse Paternal Grandmother Alcohol abuse Maternal Grandfather No problems noted. Maternal Grandmother No problems noted. Social History Smoking/Tobacco Use Status: Former Tobacco Use Second Hand Exposure: Yes Smoking risk assessment performed?: Yes Alcohol Intake: current Alcohol Intake frequency: a few times a week Alcohol type: beer, wine and hard liquor Drug use: Never Substance use type: does not use Caregiver/Support person: No Household members: spouse and children Housing: house Number of Children: 4 Communication Needs: None Do you need help understanding health information?: Rarely Pets and animals: Yes Pets and animals: dog(s) Sexually active: Yes Do you think of yourself as: straight/heterosexual Current gender identity: female What is your relationship status?: How often do you talk on the phone with friends or family?: three or more times per week How often do you get together with friends or relatives?: twice per week How often do you attend faith or christian services?: 4 or more times per year Do you belong to any clubs or organized social groups?: no Panel score (0-1 are the most socially isolated patients): 3 What type of physical activity do you participate in: none Cintia/Latter-Day: Lutheran Special cintia needs: No Seatbelt use: always Helmet use: Yes Helmet use: always Drive 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 Appears stated age. Normal body habitus. Head: Normocephalic, no trauma. Eyes: Pupils PERRLA, Red reflex noted, EOM's intact. Eyelids symmetrical without lesions, discharge, or swelling. Chest: RRR, Normal S1, S2, distal pulses intact. Resp: Lungs clear to auscultation bilaterally, no wheezes, rales, or rhonchi. Abdomen: Soft, nondistended nontender to palpation all 4 quadrants. Positive left CVA tenderness. Musculoskeletal: Normal gait, 5/5 strength to all four extremities. Skin: No suspicious rashes or lesions. Capillary refill less than 2 sec. Neurologic: Cranial nerves II-XII intact. Alert and oriented x 3. DTR's intact. Hematologic/Lymphatic: No ecchymosis, no lymphadenopathy. Course Vital Signs Vital signs: Vital Signs Temperature 36.6 C 07/19/20 17:26 Pulse 84 07/19/20 17:26 Respiratory Rate 20 07/19/20 17:26 Blood Pressure 139/77 07/19/20 17:26 Pulse Oximetry 99 07/19/20 17:26 Temperature 36.6 C 07/19/20 17:26 Temperature Source Skin 07/19/20 17:26 Pulse 84 07/19/20 17:26 Respiratory Rate 20 07/19/20 17:26 Respiratory Effort Non-Labored 07/19/20 17:32 Blood Pressure 139/77 07/19/20 17:26 Blood Pressure Position Sitting 07/19/20 17:26 Pulse Oximetry 99 07/19/20 17:26 Oxygen Delivery Method Room Air 07/19/20 17:26 Oxygen Flow Rate 0 07/19/20 17:26 Pain Level 9 07/19/20 17:32
[2020-07-19] MEDS: Ondansetron 4 MG/2 ML VIAL IVP ×2 (17:51→19:03)
[2020-07-19] MEDS: Normal Saline 1,000 ML 1000 ML IV (17:52)
[2020-07-19 17:53] LABS: Abs Immature Grans 0.06 10^3/uL (0.0-0.06); Absolute Basophil Count 0.06 10^3/uL (0.0-0.2); Absolute Eosinophil Count 0.26 10^3/uL (0.0-0.7); Absolute Lymphocyte Count 2.13 10^3/uL (1.2-3.4); Absolute Monocyte Count 0.82 10^3/uL (0.1-0.8); Absolute Neutrophil Count 5.15 10^3/uL (1.2-6.7); Basophils % 0.7; Eosinophils % 3.1; HCT 33.3 % (36.0-46.0); HGB 10.5 g/dL (11.2-15.7); Immature Grans % 0.7; Lymphocytes % 25.1; MCH 27.8 pg (27.0-33.0); MCHC 31.5 % (32.0-36.0); MCV 88.1 fL (80-95); MPV 8.6 fL (8.0-11.0); Monocytes % 9.7; Neutrophils % 60.7; Nucleated RBC 0 %; Platelet Count 269 10^3/uL (130-400); RBC 3.78 10^6/uL (3.93-5.22); RDW 16.3 % (11.7-14.6); RDW-SD 52.9 fL; WBC 8.48 10^3/uL (4.4-10.8)
[2020-07-19] MEDS: Ketorolac 15 MG/ML VIAL IVP (17:56)
--- NOTE | 2020-07-19 18:34 | DI.VRAD_ITS ---
PROCEDURE INFORMATION: Exam: CT Abdomen And Pelvis Without Contrast Exam date and time: 07/19/2020 6:17 PM Age: 55 years old Clinical indication: Other: Left side flank pain R/O stone/pyelo TECHNIQUE: Imaging protocol: Computed tomography of the abdomen and pelvis without contrast. Radiation optimization: All CT scans at this facility use at least one of these dose optimization techniques: automated exposure control; mA and/or kV adjustment per patient size (includes targeted exams where dose is matched to clinical indication); or iterative reconstruction. COMPARISON: CT ABD PELVIS WITH CONTRAST 08/04/2016 9:57 PM FINDINGS: Liver: The liver is diffusely decreased in density. Gallbladder and bile ducts: Normal. No calcified stones. No ductal dilation. Pancreas: Normal. No ductal dilation. Spleen: Normal. No splenomegaly. Adrenal glands: Normal. No mass. Kidneys and ureters: There is a 4 mm calculus within the left ureter at the L4 level with secondary left hydroureter and hydronephrosis. There is also a 1 mm nonobstructing calculus within the left kidney. The right kidney appears normal with no evidence of hydronephrosis. Stomach and bowel: Unremarkable. No obstruction. No mucosal thickening. Appendix: No evidence of appendicitis. Intraperitoneal space: Unremarkable. No free air. No significant fluid collection. Vasculature: The aorta demonstrates mild atherosclerotic calcification. Lymph nodes: Unremarkable. No enlarged lymph nodes. Urinary bladder: Unremarkable as visualized. Reproductive: The uterus appears unremarkable. No adnexal masses are seen. Bones/joints: Unremarkable. No acute fracture. Soft tissues: Unremarkable. IMPRESSION: 1. 4 mm calculus within the left ureter with associated left hydroureter and hydronephrosis. 2. Nonobstructing left nephrolithiasis. 3. Fatty liver disease. Dictated and Authenticated by: Chong Castellanos MD. Ordering:JACOBO Lin MD
[2020-07-19 18:45] LABS: Bilirubin Small (Negative); Blood Large (Negative); Clarity Sl Cloudy (Clear); Glucose Negative (Negative); Ketones Negative (Negative); Leukocyte Esterase Negative (Negative); Nitrite Negative (Negative); Specific Gravity >= 1.030 (1.005-1.025); Urobilinogen 0.2 EU/dL (Up TO 0.2); pH 5.5 (5-8)
[2020-07-19 19:01] LABS: Bacteria Moderate HPF (Negative); C & S Indicated? Yes; RBC >50 HPF (0-2)
[2020-07-19] MEDS: Tamsulosin 0.4 MG CAPCR PO (19:03)
[2020-07-19 19:06] VITALS: BP 126/71; PULSE 85; RESP 16; TEMP 36.6; O2SAT 100
[2020-07-19 19:06] LABS: ALT 44 U/L (14-59); AST 35 U/L (15-37); Albumin 4.4 g/dL (3.4-5.0); Alkaline Phosphatase 124 U/L (46-116); Anion Gap 12.3 mmol/L (3-11); BUN 23 mg/dL (7-18); Bilirubin, Total 0.5 mg/dL (0.2-1.0); CO2 25.7 mmol/L (21.0-32.0); CREATININE 1.7 mg/dL (0.55-1.02); Calcium 9.7 mg/dL (8.5-10.1); Chloride 103 mmol/L (98-107); Estimated GFR 31.09 (mL/min/1.73m2); Glucose 101 mg/dL (74-106); Sodium 141 mmol/L (136-145); Total Protein 8.3 g/dL (6.4-8.2)
[2020-07-19] MEDS: Ondansetron O.D.T. 4 MG TABEF, 3 TABS/BTL PO (19:32)
--- NOTE | 2020-07-20 06:22 | NUR.NOTE ---
Nursing Note: referral faxed to [facility] 07/20/20 libl
== END 2020-07-19 19:38 | disposition home or self-care (01) ==
PROVIDERS: Emergency Provider Registered Nurse Emergency; PCP Nurse Practitioner Family
DX: N13.2 Hydronephrosis with renal and ureteral calculous obstruction (principal); N13.4 Hydroureter; R11.2 Nausea with vomiting, unspecified
CPT/HCPCS: 36415; 80053; 96374; 96375; 96376; 99284; 74176; 81003; 81015; 85025; 87086; J1885; J2405

== ENCOUNTER 2020-09-01 02:54 | Outpatient (CLI) | payer BC, SELFPAY ==
[2020-09-01 11:33] LABS: Source Nasal/Nares
[2020-09-01 15:09] LABS: COVID-19 PCR Negative (Negative)
== END 2020-09-01 02:55 | disposition home or self-care (01) ==
PROVIDERS: Urology; PCP Nurse Practitioner Family; Visit Provider Nurse Practitioner Gerontology
DX: Z20.822 Contact with and (suspected) exposure to COVID-19 (principal); Z01.818 Encounter for other preprocedural examination
CPT/HCPCS: 87635

== ENCOUNTER 2020-09-05 08:29 | Day surgery (SDC) | payer BC, SELFPAY ==
[2020-09-05] VITALS (8 sets, daily range): BP systolic 99–118; BP diastolic 50–68; PULSE 60–90; RESP 14–18; TEMP 36–36.3; O2SAT 92–96; BMI 30.6
[2020-09-05] MEDS: Lactated Ringers 1,000 ML 80 ML IV (08:50)
--- NOTE | 2020-09-05 09:21 | W.ANESPRE ---
General Info Date of Service Date Performed: 09/05/20 Height: 5 ft 3 in Weight: 78.4 kg Body Mass Index (BMI): 30.6 Surgical Procedure: Operation Date: 09/05/20 09:40 Proposed Procedures Side Surgeon p Cystoscopy/Laser/Retrograde/Ureteroscopy, STONE EVACUATION ? STENT Left Shawn Brand MD Meds Allergies and Home Medications Allergies Allergy/AdvReac Type Severity Reaction Status Date / Time dog dander Allergy Mild Verified 09/05/20 08:24 Home Medication Medication Instructions Recorded multivitamin [Daily Multi-Vitamin] 1 tab PO HS 03/21/18 ibuprofen 800 mg tablet 800 mg PO TID PRN #60 tab 07/25/20 escitalopram oxalate 20 mg PO HS 09/01/20 rosuvastatin 10 mg PO HS 09/01/20 tamsulosin 0.4 mg PO HS 09/01/20 Current Visit Medications: Current Medications Generic Name Dose Route Start Last Admin Trade Name Freq PRN Reason Stop Dose Admin Ringer's Solution 1,000 mls @ 80 mls/hr 09/05/20 06:00 09/05/20 08:50 IV 10/02/20 23:59 80 mls/hr INFUSION SILVIA Administration Cefazolin Sodium/Dextrose 1 gm in 50 mls @ 100 mls/hr 09/05/20 06:00 Ancef Duplex IVPB 09/05/20 23:59 PREOP SILVIA IV Miscellaneous Supplies 1 each 09/05/20 06:00 Iv Access IV 10/02/20 23:59 DIRECTED SILVIA Sodium Chloride 0 ml 09/05/20 06:00 Normal Saline Flush 10 Ml Syr IV 10/02/20 23:59 PRN PRN Sodium Chloride 0 ml 09/05/20 06:00 Normal Saline 10 Ml Vial IJ 10/02/20 23:59 DIRECTED PRN Sterile Water 0 ml 09/05/20 06:00 Water,Injection,Sterile 10 Ml Vial IJ 10/02/20 23:59 DIRECTED PRN PFSH Active Problems Active Problems: Problem Status Onset Code Left ureteral calculus N20.1 Prediabetes R73.03 Hyperlipidemia E78.5 Depressive disorder F32.9 Medical History Medical History Depressive disorder GERD (gastroesophageal reflux disease) Hyperlipidemia Osteoarthritis Prediabetes Surgical History Surgical History History of section (04/04/87) S/P colonoscopy (03/09/19) S/P tonsillectomy and adenoidectomy Tobacco Smoking/Tobacco Use Status: Former Tobacco Use Passive smoking exposure: Yes Second hand exposure: Yes Alcohol Alcohol Intake: current Alcohol intake frequency: a few times a week Alcohol type: beer, wine and hard liquor Substance Use Substance use: Never Substance use type: does not use Prental History History 6 Para 5 Hx # Term Pregnancies Multiple births Hx # Pregnancies Ectopic pregnancies AB induced Hx Number of Living Children 5 AB spontaneous 1 Vital Signs and Lab Results Vital Signs Most Recent Vital Signs in EMR: Most Recent Vital Signs Temp Pulse Resp BP Pulse Ox 36.3 C L 90 18 118/68 94 09/05/20 08:30 09/05/20 08:30 09/05/20 08:30 09/05/20 08:30 09/05/20 08:30 Lab Results Blood Type / Crossmatch: No Data to Display Complete Blood Count: No Data to Display Complete Metabolic Panel: No Data to Display Liver Function Panel: No Data to Display Coagulation Panel: No Data to Display Cardiac Panel: No Data to Display Arterial Blood Gas: No Data to Display Venous Blood Gas: No Data to Display Pancreas Panel: No Data to Display Thyroid Panel: No Data to Display Infectious Disease: Coronavirus (COVID-19)(PCR) Negative (Negative) 09/01/20 11:15 09/01/20 Coronavirus 2019 Source Nasal/nares 09/01/20 11:15 09/01/20 Blood Cultures: No Data to Display Toxicology Panel: No Data to Display Anesthesia Assessment and Plan Anesthesia History Personal History: No History of Anesthesia Complications Family History: No Family History of Anesthesia Complications Exercise Tolerance Exercise Tolerance: Metabolic Equivalents>4 Pertinent Negatives Pertinent Negatives: No Symptoms of GERD, No Major Cardiovascular Symptoms or Complaints, No Major Pulmonary Symptoms or Complaints (VERNON not on CPAP ) and No History of CVA/TIA Cardiac & Pulmonary Exam Cardiac Exam: Normal S1/S2 Heart Sounds Pulmonary Exam: Clear Bilateral Breath Sounds Airway Exam Known Difficult Airway: No Mallampati Class: 4 Mouth Opening: Normal (> 3cm) Thyromental Distance: Less than 3 cm Neck Range of Motion: Full ROM Neck Circumference: Normal Teeth Condition: Normal Dentition ASA Classification ASA Score: ASA 2 Emergency Case?: No NPO Status NPO Status: NPO Clears >2 hours, Solids >8 hours Anesthesia Plan Resuscitation Status: Full Code Anesthesia Technique: General Anesthesia Airway Planned: LMA Monitors Used: Standard Monitors
--- NOTE | 2020-09-05 09:30 | W.PM.HP.N ---
Date of service: 09/05/20 Time of Service: 09:31 Assessment and Plan Assessment and plan (1) Left ureteral calculus: Status: Acute Assessment and plan: For cystoscopy, left retrograde pyelogram, left ureteroscopy with holmium laser lithotripsy and possible ureteral stent placement History of Present Illness History of Present Illness Chief Complaint: Left ureteral stone Narrative: Radha is a 55-year-old female referred to urology from [facility] for gross hematuria.? Patient was seen at the [facility] clinic for left flank pain and gross hematuria.? Renal ultrasound was ordered. However she went to the emergency room the next day found on CT ureteral stone 5 mm in diameter causing mild to moderate hydronephrosis.? Patient was placed on tamsulosin and has to strain her urine.? She has not yet passed the stone to her knowledge. Also of note from the initial [facility] visit the urine grew out E. coli.? Patient was treated appropriately.? Follow-up urine through PCP was negative for infection but still small amount of blood. She reports having no further gross hematuria.? She continues to have intermittent left flank.? She has no change in her frequency or urgency. Her followup renal US shows persistent left hydronephrosis. She has no fever or chills. Review of Systems Constitutional Comments: No fevers or chills No vision change or dysphasia No thyroid dysfunction No shortness of breath, cough or hemoptysis No chest pain or palpitations No nausea, vomiting, hepatitis, ulcers, jaundice No seizures, strokes or peripheral neuropathy No bleeding disorders or anemia No gout PFSH Medical History Depressive disorder GERD (gastroesophageal reflux disease) Hyperlipidemia Osteoarthritis Prediabetes Surgical History History of section (04/04/87) S/P colonoscopy (03/09/19) S/P tonsillectomy and adenoidectomy Family History Mother Heart disease Hyperlipidemia Hypertension Glaucoma Father Dementia Sister Hyperlipidemia Hypertension Type 2 diabetes mellitus Depression Brother No problems noted. Son Asthma Son No problems noted. Daughter Depression Daughter Asthma Depression Daughter Asthma Paternal Grandfather Alcohol abuse Paternal Grandmother Alcohol abuse Maternal Grandfather No problems noted. Maternal Grandmother No problems noted. Social History Smoking/Tobacco Use Status: Former Tobacco Use Quit Date: 04/15/83 Second Hand Exposure: Yes Smoking risk assessment performed?: Yes Alcohol Intake: current Alcohol Intake frequency: a few times a week Alcohol type: beer, wine and hard liquor Drug use: Never Substance use type: does not use Caregiver/Support person: No Household members: spouse and children Housing: house Number of Children: 4 Communication Needs: None Do you need help understanding health information?: Rarely Pets and animals: Yes Pets and animals: dog(s) Sexually active: Yes Do you think of yourself as: straight/heterosexual Current gender identity: female What is your relationship status?: How often do you talk on the phone with friends or family?: three or more times per week How often do you get together with friends or relatives?: twice per week How often do you attend mormonism or church services?: 4 or more times per year Do you belong to any clubs or organized social groups?: no Panel score (0-1 are the most socially isolated patients): 3 What type of physical activity do you participate in: none Cintia/Hindu: Alevism Special cintia needs: No Seatbelt use: always Helmet use: Yes Helmet use: always Drive 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 Do you feel safe at home: Yes Do you feel safe in your relationship?: Yes Female Reproductive History Menstrual control method: other History History 6 Para 5 Hx # Term Pregnancies Multiple births Hx # Pregnancies Ectopic pregnancies AB induced Hx Number of Living Children 5 AB spontaneous 1 Meds Allergies and Home Medications Allergies Allergy/AdvReac Type Severity Reaction Status Date / Time dog dander Allergy Mild Verified 09/05/20 08:24 Home Medications Medication Instructions Recorded Confirmed Type multivitamin [Daily Multi-Vitamin] 1 tab PO HS 03/21/18 09/05/20 History ibuprofen 800 mg tablet 800 mg PO TID PRN #60 tab 07/25/20 09/05/20 Rx escitalopram oxalate 20 mg PO HS 09/01/20 09/05/20 History rosuvastatin 10 mg PO HS 09/01/20 09/05/20 History tamsulosin 0.4 mg PO HS 09/01/20 09/05/20 History Exam Const General: cooperative and comfortable Neck Neck: supple Resp Effort & Inspection: normal respiratory effort Auscultation: clear to auscultation bilaterally Cardio Rate: regular rate Rhythm: regular rhythm GI Palpation: soft and no masses Neuro General: patient alert, patient awake and patient oriented x3 Results Last Vital Signs Temp 36.3 C L 09/05/20 08:30 Pulse 90 09/05/20 08:30 Resp 18 09/05/20 08:30 BP 118/68 09/05/20 08:30 Pulse Ox 94 09/05/20 08:30 COVID-19 Screening Have you, or household traveled for leisure in last 14 days?: No Had IN PERSON contact w/suspected or confirmed C-19 person: No
[2020-09-05] MEDS: ceFAZolin 1 GM/50 ML BAG IVPB (10:20)
[2020-09-05] MEDS: Lidocaine 2% Jelly 6 ML SYR (10:48)
[2020-09-05] MEDS: Omnipaque 300 MG/ML 50 ML BTL (10:51)
--- NOTE | 2020-09-05 10:53 | W.PM.DSUDISC ---
Discharge Plan Disposition Patient Disposition: HOME Condition: Stable Discharge Details Attending Provider: Shawn Brand Primary Care Provider: Lina Villeda Home Meds and New Rx's Prescriptions: No Action ibuprofen 800 mg tablet 800 mg PO TID PRN (Reason: pain) Qty: 60 RF: 0 multivitamin [Daily Multi-Vitamin] Tablet 1 tab PO HS RF: 0 tamsulosin 0.4 mg capsule 0.4 mg PO HS RF: 0 escitalopram oxalate 20 mg tablet 20 mg PO HS RF: 0 rosuvastatin 10 mg tablet 10 mg PO HS RF: 0 Discharge Instructions Additional Instructions: no need to strain urine followup 4 to 6 weeks with renal ultrasound and stone analysis may stop Tamsulosin Activity:: Activity as Tolerated Diet:: As Tolerated Discharge Orders Discharge Orders: Discharge Order (Routine); Ordered 09/05/20 Ordered By: Shawn Brand DS: Diagnosis Discharge Diagnosis (1) Left ureteral calculus: Status: Acute
--- NOTE | 2020-09-05 10:56 | W.PM.OP ---
Date of service: 09/05/20 Time of Service: 10:57 Operative Note Operative Note DATE OF PROCEDURE: 09/05/20 PRE-OP DIAGNOSIS: Left ureteral stone POST-OP DIAGNOSIS: same PROCEDURE: cystoscopy, left retrograde pyelogram, left ureteroscopy with stone extraction SURGEON: Shwan Brand ANESTHESIA TYPE: General LMA/ETT Refer to Anesthesia Record ESTIMATED BLOOD LOSS: 5 PATHOLOGY: other (stone for chemical analysis) COMPLICATIONS: None Patient was transported to: PACU Patient's condition: stable Indications: This is a 55-year-old woman currently presented with gross hematuria and left flank pain. She was identified as having a left proximal ureteral stone. He did not pass her stone with conservative management. A follow-up renal ultrasound showed persistent hydronephrosis. She presents now for stone manipulation Findings: Left ureteral stone migrated to distal ureter Procedure Description: The patient was brought to the operating room on 09/05/2020. She was given a dose of preoperative IV antibiotics. After successful induction of general anesthesia, she was placed in the dorsal lithotomy position. Her genitalia was prepped and draped. 2% Xylocaine jelly was instilled into the urethra to act as a local anesthetic. I was not able to insert 21 Telugu cystoscope sheath, so I dilated the urethra up to a size 22 Telugu using sounds. The cystoscope sheath was then introduced and the bladder was inspected with a 30 degree lens. The right ureteral orifice appeared normal. The left orifice was a bit more edematous. No bladder tumors or stones were seen within the lumen of the bladder. A 6 Telugu access catheter was then introduced through the lumen of the cystoscope and inserted into the left ureteral orifice. Retrograde pyelogram was obtained by injecting Omnipaque through the access catheter under fluoroscopic guidance. A filling defect was now seen in the left distal ureter. A Glidewire was advanced through the lumen of the ureteral access catheter and the catheter was removed. The cystoscope was removed. A semirigid ureteroscope was then inserted through the urethra into the bladder. The scope was introduced into the left ureteral orifice and advanced until the stone was seen. The stone was then grasped in a Marcelle stone basket and removed in its entirety. The stone was sent for chemical analysis. Since the stone was removed in one pass and there was no obvious ureteral injury, we elected not to place a ureteral stent. The guidewire was removed. The patient tolerated this procedure well. She was taken to the recovery room in stable condition.
--- NOTE | 2020-09-05 10:58 | DI.RAD_ITS ---
Exam(s) XR RETROGRADE IN OR EXAM: XR RETROGRADE IN OR CLINICAL HISTORY: LEFT URETERAL CALCULUS. TECHNIQUE: 2D and realtime digital imaging was performed. COMPARISON: No exams were available for comparison FINDINGS: Plasty was provided for Dr. Brand for guidance with performing retrograde exam. Hard copy images pauline w injection of contrast into the left collecting system. Please see procedure note for details. RADIATION DOSE DELIVERED: Kar=7.03 mGy Fluoro time 28.7 seconds
--- NOTE | 2020-09-05 11:40 | W.ANESPOSTOP ---
Postoperative Evaluation Date, Time and Location Date Performed: 09/05/20 Time Performed: 11:40 Patient Location: PACU Vital Signs Most Recent Imported Vital Signs: Most Recent Vital Signs Temp Pulse Resp BP Pulse Ox 36.2 C L 80 18 100/56 L 93 09/05/20 11:03 09/05/20 11:33 09/05/20 11:33 09/05/20 11:33 09/05/20 11:33 Pain Score Most Recent Pain Score: Most Recent Pain Score Pain Level 1 09/05/20 11:33 Assessment Mental Status: Awake (Alert & Oriented to Patient Baseline) Airway and Respiratory Function: Patent airway with normal (patient baseline) respiratory exam Cardiovascular Function: Hemodynamically Stable Hydration Status: Adequately Hydrated Nausea & Vomiting: No Nausea or Vomiting Pain: Pt. Denies Any Pain Peripheral Nerve Block: Patient did not receive a nerve block
[2020-09-05] MEDS: Phenazopyridine 200 MG TAB PO (12:01)
[2020-09-10 00:29] LABS: Source: Left Ureter
== END 2020-09-05 13:07 | disposition home or self-care (01) ==
PROVIDERS: PCP Nurse Practitioner Family; Visit Provider Urology
PROC: (CPT 52325; principal; 2020-09-05 09:30)
DX: N20.1 Calculus of ureter (principal); K21.9 Gastro-esophageal reflux disease without esophagitis; R73.03 Prediabetes; E78.5 Hyperlipidemia, unspecified
CPT/HCPCS: 52325; 74420; 82365; J0690; J1100; J2001; J2405; J2704; Q9967

== ENCOUNTER 2020-11-22 13:24 | Outpatient (REF) | payer BC, SELFPAY ==
[2020-11-22 19:41] LABS: Creatinine,Urine 83.24 mg/dL; Sodium, Urine 62 mmol/L
[2020-11-22 19:42] LABS: CLEAVED CELLS 105 mmol/24h (40-220); Creatinine,24hr Ur 1.42 g/24hr (0.60-1.80); Total Volume 1700 ml
[2020-11-24 08:49] LABS: Calcium Urine 12.4 mg/dL (See Note); Calcium Urine 24 hr 211 mg/24hrs (100-300); Timed Urine Volume 1700 mL
[2020-11-24 08:51] LABS: Timed Urine Volume 1700 mL; Uric Acid Urine 38.1 mg/dL (See Note); Uric Acid Urine 24hr 648 mg/24hrs (250-750)
[2020-11-24 08:52] LABS: Magnesium 24hr Urine 93.5 mg/24hrs (12.0-192.0); Magnesium Random Urine 5.5 mg/dL (See Note); Timed Urine Volume 1700 mL
[2020-11-24 15:13] LABS: Citrate Excretion, 24hr, U 930 mg/24 h (406 - 1191); Urine Volume 1700 mL
[2020-11-24 16:40] LABS: Oxalate, U 17.6 mg/24 h (9.7 - 40.5); Urine Volume 1700 mL
== END 2020-11-22 13:25 | disposition home or self-care (01) ==
LOC: LBN 13:24
PROVIDERS: PCP Nurse Practitioner Family; Visit Provider Urology
DX: N20.1 Calculus of ureter (principal)
CPT/HCPCS: 82507; 83735; 81050; 82340; 82570; 83945; 84300; 84560

== ENCOUNTER 2021-03-23 02:08 | Outpatient (CLI) | payer BC, SELFPAY ==
--- NOTE | 2021-03-23 10:19 | DI.MAMMO_ITS ---
Exam(s) MAMMO SCREENING EXAM: MAMMO SCREENING CLINICAL HISTORY: screening,z12.39. TECHNIQUE: Bilateral full field digital CC and MLO mammographic images were obtained with 3D tomosyn thesis and utilizing computer aided detection (CAD). COMPARISON: Prior mammograms dating back to 2013, the most recent being March 2020. FINDINGS: There has been no significant change in the appearance and distribution of the fibroglandular tissue. There are no new spiculated masses nor malignant appearing microcalcification groups. There is no significant architectural distortion nor skin thickening-retraction. IMPRESSION: No radiographic evidence of malignancy. BI-RADS Category 1 - Negative Breast Density - Category B - Scattered areas of fibroglandular density Breast density Category C or D implies that the patient has dense breast tissue. Dense breast tissue can make it harder to find cancer on a mammogram. Dense breast tissue is also associated with an incr eased risk of breast cancer. This information about the result of the mammogram report was provided to the patient to raise their awareness. Use this report when you speak with the patient about their risks for breast cancer, which includes their family history. At that time, you may recommend additional screening tests (Ultrasoun d or MRI) as these tests may add significant information. A negative radiographic report should not delay biopsy if a dominant or clinically suspicious mass is present. Up to ten percent of cancers are not identified on mammography. A negative report may reinforce clinical impression. Adenosis and dense breasts may obscure an underlying neoplasm. False positive reports average 6 to 10%. Patient will receive a letter notifying them of these results.
== END 2021-03-23 02:28 ==
PROVIDERS: PCP Nurse Practitioner Family; Visit Provider Nurse Practitioner Family
DX: Z12.31 Encounter for screening mammogram for malignant neoplasm of breast (principal)
CPT/HCPCS: 77063; 77067

== ENCOUNTER 2021-05-09 04:14 | Outpatient (CLI) | payer BC, SELFPAY ==
[2021-05-09 13:18] LABS: Anion Gap 7.3 mmol/L (3-11); BUN 20 mg/dL (7-18); CO2 28.7 mmol/L (21.0-32.0); CREATININE 1.1 mg/dL (0.55-1.02); Calcium 9.3 mg/dL (8.5-10.1); Chloride 103 mmol/L (98-107); Glucose 101 mg/dL (74-106); Potassium 4.3 mmol/L (3.5-5.1); Sodium 139 mmol/L (136-145)
== END 2021-05-09 04:15 | disposition home or self-care (01) ==
LOC: LBO 04:15
PROVIDERS: PCP Nurse Practitioner Family; Visit Provider Nurse Practitioner Family
DX: R73.03 Prediabetes (principal); N20.1 Calculus of ureter
CPT/HCPCS: 36415; 80048; 83036

== ENCOUNTER 2021-09-04 13:19 | Outpatient (REF) | payer BC, SELFPAY ==
[2021-09-05 14:44] LABS: COVID-19 RT-PCR UVMMC Result Negative (Negative)
== END 2021-09-04 13:20 | disposition home or self-care (01) ==
LOC: LBN 13:19
PROVIDERS: PCP Nurse Practitioner Family; Visit Provider Family Medicine
DX: Z20.822 Contact with and (suspected) exposure to COVID-19 (principal); R05.8 Other specified cough
CPT/HCPCS: U0003

== ENCOUNTER → 2021-10-24 18:33 | Outpatient (CLI) | payer BC, SELFPAY ==
--- NOTE | 2021-10-24 18:30 | DI.RAD_ITS ---
Exam(s) XR CHEST 2V PA LATERAL EXAM: XR CHEST 2V PA LATERAL CLINICAL HISTORY: cough, r/o pneumonia. TECHNIQUE: 2D digital imaging was performed. COMPARISON: CR ABD FLAT UPRIGHT PA CHEST from 03/15/2010 FINDINGS: 2 views: Heart size is normal. The mediastinum is not widened. Lungs are clear. No infiltrates nor pleural effusions. IMPRESSION: No acute pulmonary findings. DATA REPOSITORY: RADIATION DOSE DELIVERED:
--- NOTE | 2021-10-24 19:44 | DI.VRAD_ITS ---
PROCEDURE INFORMATION: Exam: XR Chest Exam date and time: 10/24/2021 7:06 PM Age: 56 years old Clinical indication: Patient HX: Cough, R/O pneumonia TECHNIQUE: Imaging protocol: Radiologic exam of the chest. Views: 2 views. COMPARISON: CT RENAL COLIC WO 07/19/2020 6:20 PM FINDINGS: Lungs: The lungs are clear without infiltrate or edema. Pleural spaces: No pleural effusion or pneumothorax. Heart/Mediastinum: The cardiac silhouette is normal in size. Bones/joints: No acute osseous abnormality. IMPRESSION: No acute findings. Dictated and Authenticated by: Ana Danielson MD. Ordering:ABBEY Govea MD
== END ==
PROVIDERS: PCP Nurse Practitioner Family; Visit Provider Physician Assistant
DX: R05.9 Cough, unspecified (principal)
CPT/HCPCS: 71046

== ENCOUNTER 2021-10-24 19:11 | Outpatient (REF) | payer BC, SELFPAY | END 2021-10-24 19:12 | disposition home or self-care (01) | LOC: LBN 19:11 | PROVIDERS: PCP Nurse Practitioner Family; Visit Provider Physician Assistant | DX: J02.9 Acute pharyngitis, unspecified (principal) | CPT/HCPCS: 87070 ==

== ENCOUNTER 2022-03-07 11:46 | Outpatient (REF) | payer BC, SELFPAY ==
--- NOTE | 2022-03-07 10:00 | PAPFT_PTH ---
PATIENT: Radha Obando LOC: Sy U#:[id number] AGE/SX: 57/F ROOM: RE03/07/[address]: CRISTINA Yao : 1965 BED: DIS: 03/07/2022 SPEC #: [id number] RECD: 03/07/22 12:50 STATUS: TATIANA REQ #: [id number] SIM: 03/07/22 10:[address]: Lina Villeda DEPT: [facility] [place] Cytology RECD BY: Patito Hampton Tissues: 1 - CX/ENDOCX FOR PAP SMEARS Procedures: PAP THIN PREP/UVM Screening HPV DNA PROBE Comments: [id number]
== END 2022-03-07 11:47 | disposition home or self-care (01) ==
LOC: LBN 11:46
PROVIDERS: PCP Nurse Practitioner Family; Visit Provider Nurse Practitioner Family
DX: Z12.4 Encounter for screening for malignant neoplasm of cervix (principal); R87.610 Atypical squamous cells of undetermined significance on cytologic smear of cervix (ASC-US); Z11.51 Encounter for screening for human papillomavirus (HPV)
CPT/HCPCS: 88142; 87624

== ENCOUNTER 2022-04-18 03:18 | Outpatient (CLI) | payer BC, SELFPAY ==
--- NOTE | 2022-04-18 08:00 | DI.MAMMO_ITS ---
Exam(s) MAMMO SCREENING EXAM: MAMMO SCREENING CLINICAL HISTORY: screening,Z12.39 TECHNIQUE: Mammograms were interpreted according to the usual protocol including computer analysis w tapviva CAD system, tomosynthesis and C-view imaging. COMPARISON: 2013 through 2020 FINDINGS: The breasts are composed of scattered fibroglandular densities, Breast Density category B. No suspicious masses or suspicious microcalcifications are seen. No skin thickening or abnormal axillary lymph nodes are seen. There has been no significant change from prior exams. IMPRESSION: BI-RADS Category 1, Negative mammogram Yearly screening mammography is recommended. Breast Density - Category B, scattered fibroglandular densities. A negative radiographic report should not delay biopsy if a dominant or clinically suspicious mass is present. Up to ten percent of cancers are not identified on mammography. A negative report may reinforce clinical impression. Adenosis and dense breasts may obscure an underlying neoplasm. False positive reports average 6 to 10%. Patient will receive a letter notifying them of these results.
== END 2022-04-18 03:38 ==
LOC: DI 03:18
PROVIDERS: PCP Nurse Practitioner Family; Visit Provider Nurse Practitioner Family
DX: Z12.31 Encounter for screening mammogram for malignant neoplasm of breast (principal)
CPT/HCPCS: 77063; 77067

== ENCOUNTER 2022-07-03 02:46 | Outpatient (CLI) | payer BC, SELFPAY ==
[2022-07-03 09:31] LABS: Hemoglobin A1C 6.1 % (<5.7)
[2022-07-03 09:37] LABS: Anion Gap 8.9 mmol/L (3-11); BUN 24 mg/dL (7-18); CO2 28.1 mmol/L (21.0-32.0); CREATININE 1.2 mg/dL (0.55-1.02); Calcium 9.2 mg/dL (8.5-10.1); Calculated LDL 95 mg/dL (<100); Chloride 105 mmol/L (98-107); Cholesterol 178 mg/dL (<200); Estimated GFR 52.47 (mL/min/1.73m2); Glucose 118 mg/dL (74-106); HDL Cholesterol 41 mg/dL (40-60); Potassium 3.9 mmol/L (3.5-5.1); Sodium 142 mmol/L (136-145); Triglyceride 211 mg/dL (<150)
== END 2022-07-03 02:47 | disposition home or self-care (01) ==
LOC: LBO 02:47
PROVIDERS: PCP Nurse Practitioner Family; Visit Provider Nurse Practitioner Family
DX: E78.5 Hyperlipidemia, unspecified (principal); R73.03 Prediabetes; N18.30 Chronic kidney disease, stage 3 unspecified
CPT/HCPCS: 36415; 80048; 80061; 83036

== ENCOUNTER 2022-10-24 02:39 | Outpatient (CLI) | payer BC, SELFPAY ==
[2022-10-24 12:56] LABS: Abs Immature Grans 0.05 10^3/uL (0.0-0.06); Absolute Basophil Count 0.05 10^3/uL (0.0-0.2); Absolute Eosinophil Count 0.08 10^3/uL (0.0-0.7); Absolute Lymphocyte Count 1.91 10^3/uL (1.2-3.4); Absolute Neutrophil Count 2.87 10^3/uL (1.2-6.7); Basophils % 0.9; Eosinophils % 1.5; HCT 32.1 % (36.0-46.0); HGB 9.8 g/dL (11.2-15.7); Immature Grans % 0.9; Lymphocytes % 35.6; MCH 26.1 pg (27.0-33.0); MCHC 30.5 % (32.0-36.0); MCV 85 fL (80-95); MPV 8.5 fL (8.0-11.0); Monocytes % 7.5; Neutrophils % 53.6; Platelet Count 289 10^3/uL (130-400); RBC 3.76 10^6/uL (3.93-5.22); RDW 15.5 % (11.7-14.6); RDW-SD 48.6 fL; WBC 5.36 10^3/uL (4.4-10.8)
[2022-10-24 13:23] LABS: ALT 56 U/L (14-59); AST 37 U/L (15-37); Albumin 3.9 g/dL (3.4-5.0); Alkaline Phosphatase 94 U/L (46-116); BUN 18 mg/dL (7-18); Bilirubin, Total 0.5 mg/dL (0.2-1.0); Calcium 8.9 mg/dL (8.5-10.1); Chloride 106 mmol/L (98-107); Glucose 127 mg/dL (74-106); Sodium 141 mmol/L (136-145); TSH (W/Ref FT4) 5.52 uIU/mL (0.36-3.74); Total Protein 7.4 g/dL (6.4-8.2)
[2022-10-24 13:24] LABS: Diff Comment Agrees w/ Instrument; RBC Morphology Normal
[2022-10-24 13:47] LABS: FREE T4 0.59 ng/dL (0.76-1.46)
[2022-10-25 09:46] LABS: Reticulocyte 1.8 % (0.5-2.4)
[2022-10-25 09:52] LABS: Iron 28 ug/dL (50-170)
[2022-10-25 10:20] LABS: Vitamin B12 549 pg/mL (193-986)
== END 2022-10-24 02:40 | disposition home or self-care (01) ==
PROVIDERS: PCP Nurse Practitioner Family; Visit Provider Nurse Practitioner Family
DX: R42 Dizziness and giddiness (principal); D64.9 Anemia, unspecified
CPT/HCPCS: 36415; 80053; 82607; 83540; 84439; 84443; 85025; 85045

== ENCOUNTER 2022-10-30 02:50 | Outpatient (CLI) | payer BC, SELFPAY ==
[2022-10-30 17:37] LABS: Total Iron Binding Capacity 445 ug/dL (250-450)
[2022-10-30 17:47] LABS: Ferritin 16 ng/mL (8-252); Folate 19.7 ng/mL (8.6-20.0)
[2022-10-31 19:55] LABS: Thyroglobulin Antibody 316 U/mL (<=60); Thyroperoxidase Antibody 771 U/mL (<=60)
[2022-11-01 09:24] LABS: Transferrin 319 mg/dL (201-352)
== END 2022-10-30 02:51 | disposition home or self-care (01) ==
LOC: LBO 02:51
PROVIDERS: PCP Nurse Practitioner Family; Visit Provider Nurse Practitioner Family
DX: D64.9 Anemia, unspecified (principal); R79.89 Other specified abnormal findings of blood chemistry; E78.5 Hyperlipidemia, unspecified; N18.30 Chronic kidney disease, stage 3 unspecified; F32.89 Other specified depressive episodes
CPT/HCPCS: 36415; 86376; 82728; 82746; 83020; 83550; 84466

== ENCOUNTER 2022-10-31 20:22 | Outpatient (CLI) | payer BC, SELFPAY ==
[2022-11-02 15:22] LABS: Hemoglobinopathy Interpretat (See Note)
== END 2022-10-31 20:23 | disposition home or self-care (01) ==
LOC: LBO 20:23
PROVIDERS: PCP Nurse Practitioner Family; Visit Provider Nurse Practitioner Family
DX: D64.9 Anemia, unspecified (principal)
CPT/HCPCS: 83020

== ENCOUNTER 2022-12-21 07:23 | Outpatient (CLI) | payer BC, SELFPAY ==
--- NOTE | 2022-12-21 07:15 | RT.EKG_ITS ---
APPROVED REPORT Exam: Resting ECG Reason for Exam: cardiac evaluation Patient Location: O HR:90 bpm ECG Measurements Heart Rate 90 AXIS TN 155 P 36 QRSd 85 QRS 14 QT 377 T 31 QTc 462 Conclusion Sinus rhythm...normal P axis, V-rate 50- 99 Normal Electrocardiogram
== END 2022-12-21 07:24 | disposition home or self-care (01) ==
LOC: DI.CARD 07:24
PROVIDERS: PCP Nurse Practitioner Family; Visit Provider Internal Medicine Cardiovascular Disease
DX: E78.5 Hyperlipidemia, unspecified (principal); Z82.49 Family history of ischemic heart disease and other diseases of the circulatory system
CPT/HCPCS: 93010

== ENCOUNTER 2022-12-31 04:39 | Outpatient (CLI) | payer BC, SELFPAY ==
[2022-12-31 16:07] LABS: Abs Immature Grans 0.05 10^3/uL (0.0-0.06); Absolute Basophil Count 0.08 10^3/uL (0.0-0.2); Absolute Eosinophil Count 0.24 10^3/uL (0.0-0.7); Absolute Lymphocyte Count 2.45 10^3/uL (1.2-3.4); Absolute Monocyte Count 0.65 10^3/uL (0.1-0.8); Absolute Neutrophil Count 3.84 10^3/uL (1.2-6.7); Basophils % 1.1; Eosinophils % 3.3; HCT 36.3 % (36.0-46.0); HGB 11.4 g/dL (11.2-15.7); Immature Grans % 0.7; Lymphocytes % 33.5; MCH 27.3 pg (27.0-33.0); MCHC 31.4 % (32.0-36.0); MCV 87 fL (80-95); MPV 8.5 fL (8.0-11.0); Monocytes % 8.9; Neutrophils % 52.5; Platelet Count 269 10^3/uL (130-400); RBC 4.18 10^6/uL (3.93-5.22); RDW 17.2 % (11.7-14.6); RDW-SD 54.6 fL; WBC 7.31 10^3/uL (4.4-10.8)
[2022-12-31 16:47] LABS: TSH (W/Ref FT4) 4.11 uIU/mL (0.36-3.74)
[2022-12-31 17:34] LABS: FREE T4 0.87 ng/dL (0.76-1.46)
[2023-01-01 21:42] LABS: Lab Add On Test DONE
[2023-01-01 22:29] LABS: Ferritin 20 ng/mL (8-252)
== END 2022-12-31 04:40 | disposition home or self-care (01) ==
LOC: LBO 04:40
PROVIDERS: PCP Nurse Practitioner Family; Visit Provider Nurse Practitioner Family
DX: D50.9 Iron deficiency anemia, unspecified (principal); E03.9 Hypothyroidism, unspecified
CPT/HCPCS: 36415; 82728; 84439; 84443; 85025

== ENCOUNTER 2023-03-04 04:12 | Outpatient (CLI) | payer BC, SELFPAY ==
[2023-03-04 16:22] LABS: Hemoglobin A1C 6.2 % (<5.7)
== END 2023-03-04 04:13 | disposition home or self-care (01) ==
LOC: LBO 04:12
PROVIDERS: PCP Nurse Practitioner Family; Visit Provider Nurse Practitioner Family
DX: E03.9 Hypothyroidism, unspecified (principal); R73.03 Prediabetes
CPT/HCPCS: 36415; 83036; 84443

== ENCOUNTER 2023-03-11 19:51 | Outpatient (CLI) | payer BC, SELFPAY ==
[2023-03-11 14:05] LABS: HCT 41.9 % (36.0-46.0); HGB 13.6 g/dL (11.2-15.7); MCH 29.1 pg (27.0-33.0); MCHC 32.5 % (32.0-36.0); MCV 90 fL (80-95); MPV 8.6 fL (8.0-11.0); Platelet Count 264 10^3/uL (130-400); RBC 4.68 10^6/uL (3.93-5.22); RDW 15.5 % (11.7-14.6); RDW-SD 50.8 fL; WBC 7.76 10^3/uL (4.4-10.8)
[2023-03-11 14:32] LABS: Ferritin 33 ng/mL (8-252)
[2023-03-12 09:08] LABS: Hepatitis C Ab w Rflx HCV PCR Negative (Negative)
== END 2023-03-11 19:52 | disposition home or self-care (01) ==
LOC: LBO 19:51
PROVIDERS: PCP Nurse Practitioner Family; Visit Provider Nurse Practitioner Family
DX: D50.9 Iron deficiency anemia, unspecified (principal); Z00.00 Encounter for general adult medical examination without abnormal findings
CPT/HCPCS: 36415; 85027; 86803; 82728

== ENCOUNTER → 2023-03-27 02:43 | Outpatient (CLI) | payer BC, SELFPAY ==
--- NOTE | 2023-03-27 08:00 | DI.MRI_ITS ---
Exam(s) MR UPPER JOINT LT WO EXAM: MR UPPER JOINT LT WO CLINICAL HISTORY: left shoulder pain,M25.512. TECHNIQUE: Multiplanar multisequence MRI was performed. COMPARISON: None. FINDINGS: BONES: There is no fracture or contusion pattern. JOINTS:The acromioclavicular joint is normal. The glenohumeral joint is normal. TENDONS: Supraspinatus: Thickening and edema. Arm partial tear seen anteriorly. Infraspinatus: Unremarkable. Subscapularis: Unremarkable. Teres Minor: Unremarkable. Biceps and [place]: Unremarkable. MUSCLES: Unremarkable. GLENOID LABRUM: Unremarkable on this noncontrast examination. SOFT TISSUES: Unremarkable. OTHER: Subacromial and subdeltoid bursae . IMPRESSION: Thickening of the supraspinatus tendon with partial tear anteriorly. DATA REPOSITORY:
== END ==
PROVIDERS: PCP Nurse Practitioner Family; Visit Provider Nurse Practitioner Family
DX: M75.112 Incomplete rotator cuff tear or rupture of left shoulder, not specified as traumatic
CPT/HCPCS: 73221

== ENCOUNTER → 2023-04-30 02:21 | Outpatient (CLI) | payer BC, SELFPAY ==
--- NOTE | 2023-04-30 08:43 | DI.MAMMO_ITS ---
Exam(s) MAMMO SCREENING EXAM: MAMMO SCREENING CLINICAL HISTORY: screening Z12.39 FOR BREAST CANCER. TECHNIQUE: Bilateral full field digital CC and MLO mammographic images were obtained with 3D tomosyn thesis and utilizing computer aided detection (CAD). COMPARISON: Prior mammograms were reviewed. FINDINGS: No new significant findings in left breast. Asymmetric density in the lateral aspect of the right breast seen on the CC view is unchanged from pr ior mammograms dating back to at least 2019. There are no new spiculated masses nor malignant appearing microcalcification groups. There is no significant architectural distortion nor skin thickening-retraction. IMPRESSION: Benign findings. No radiographic evidence of malignancy. BI-RADS Category 2 - Benign Findings Breast Density - Category B - Scattered areas of fibroglandular density Breast density Category C or D implies that the patient has dense breast tissue. Dense breast tissue can make it harder to find cancer on a mammogram. Dense breast tissue is also associated with an incr eased risk of breast cancer. This information about the result of the mammogram report was provided to the patient to raise their awareness. Use this report when you speak with the patient about their risks for breast cancer, which includes their family history. At that time, you may recommend additional screening tests (Ultrasoun d or MRI) as these tests may add significant information. A negative radiographic report should not delay biopsy if a dominant or clinically suspicious mass is present. Up to ten percent of cancers are not identified on mammography. A negative report may reinforce clinical impression. Adenosis and dense breasts may obscure an underlying neoplasm. False positive reports average 6 to 10%. Patient will receive a letter notifying them of these results.
== END ==
PROVIDERS: PCP Nurse Practitioner Family; Visit Provider Nurse Practitioner Family
DX: Z12.31 Encounter for screening mammogram for malignant neoplasm of breast (principal)
CPT/HCPCS: 77063; 77067

== ENCOUNTER 2023-06-27 03:08 | Outpatient (CLI) | payer BC, SELFPAY ==
[2023-06-27 16:36] LABS: Abs Immature Grans 0.03 10^3/uL (0.0-0.06); Absolute Basophil Count 0.06 10^3/uL (0.0-0.2); Absolute Eosinophil Count 0.22 10^3/uL (0.0-0.7); Absolute Lymphocyte Count 2.52 10^3/uL (1.2-3.4); Absolute Monocyte Count 0.66 10^3/uL (0.1-0.8); Absolute Neutrophil Count 3.38 10^3/uL (1.2-6.7); Basophils % 0.9; Eosinophils % 3.2; HCT 34.1 % (36.0-46.0); HGB 11.1 g/dL (11.2-15.7); Immature Grans % 0.4; Lymphocytes % 36.7; MCH 29.4 pg (27.0-33.0); MCHC 32.6 % (32.0-36.0); MCV 91 fL (80-95); MPV 9.3 fL (8.0-11.0); Monocytes % 9.6; Neutrophils % 49.2; Platelet Count 276 10^3/uL (130-400); RBC 3.77 10^6/uL (3.93-5.22); RDW 13.4 % (11.7-14.6); RDW-SD 43.9 fL; WBC 6.87 10^3/uL (4.4-10.8)
[2023-06-27 17:27] LABS: Anion Gap 9.9 mmol/L (3-11); BUN 19 mg/dL (7-18); CO2 27.1 mmol/L (21.0-32.0); CREATININE 1.1 mg/dL (0.55-1.02); Calcium 9.1 mg/dL (8.5-10.1); Chloride 103 mmol/L (98-107); Estimated GFR 57.88 (mL/min/1.73m2); Glucose 102 mg/dL (74-106); Potassium 4.1 mmol/L (3.5-5.1); Sodium 140 mmol/L (136-145)
== END 2023-06-27 03:09 | disposition home or self-care (01) ==
LOC: LBO 03:09
PROVIDERS: PCP Nurse Practitioner Family; Visit Provider Obstetrics & Gynecology
DX: N95.0 Postmenopausal bleeding (principal); N18.30 Chronic kidney disease, stage 3 unspecified
CPT/HCPCS: 36415; 80048; 85025

== ENCOUNTER 2024-03-13 16:59 | Outpatient (REF) | payer BC, SELFPAY ==
[2024-03-13 21:28] LABS: COMMENT (LAB VIEW ONLY) 241.68 mg/dL; Microalb ug/mg Crea 3.8 ug/mg Cr
== END 2024-03-13 17:00 | disposition home or self-care (01) ==
LOC: LBN 16:59
PROVIDERS: PCP Nurse Practitioner Family; Visit Provider Nurse Practitioner Family
DX: N18.30 Chronic kidney disease, stage 3 unspecified (principal)
CPT/HCPCS: 82043; 82570

== ENCOUNTER 2024-03-20 15:42 | Emergency (ER) | payer BC, SELFPAY ==
--- NOTE | 2024-03-20 15:30 | RT.EKG_ITS ---
APPROVED REPORT Exam: Resting ECG Reason for Exam: chest pain Patient Location: E HR:77 bpm ECG Measurements Heart Rate 77 AXIS IA 166 P 12 QRSd 83 QRS 11 QT 406 T 3 QTc 461 Conclusion Sinus rhythm, rate 77 No interval abnormalities No STEMI No significant change from priors
[2024-03-20 15:43] VITALS: BP 138/81; PULSE 75; RESP 14; TEMP 36.7; O2SAT 97
--- NOTE | 2024-03-20 15:45 | DI.RAD_ITS ---
Exam(s) XR CHEST 2V PA LATERAL EXAM: XR CHEST 2V PA LATERAL CLINICAL HISTORY: Chest pain TECHNIQUE: 2D digital imaging was performed of the chest. Images were obtained. PA and lateral v iews were obtained. COMPARISON: CR,XR XR CHEST 2V PA LATERAL from 10/24/2021 FINDINGS: MEDIASTINUM: Normal. HEART: Normal. PULMONARY VASCULATURE: Normal. LUNGS: Clear. PLEURAL SPACE: No pleural effusion or pneumothorax. BONE:Within normal limits for the patient's age. OTHER FINDINGS:Normal. IMPRESSION: No acute pulmonary findings. DATA REPOSITORY: RADIATION DOSE DELIVERED:
--- NOTE | 2024-03-20 16:03 | ED.GENADUL_ITS ---
Discharge Plan Disposition Patient Disposition: Home Condition: Stable Discharge Details Clinical Impression: Chest pain of uncertain etiology, CKD (chronic kidney disease) stage 3, GFR 30- 59 ml/min, Hypothyroidism, Hyperlipidemia, Transaminitis Primary Care Provider: Lina Villeda ED Provider: Bita Espitia Home Meds and New Rx's Prescriptions: New diclofenac sodium 1 % gel 2 g topical QID Qty: 100 0RF Rx Instructions: apply to single elbow, wrist or hand; for hand includes palm/fingers/back of hand No Action rosuvastatin 10 mg tablet 10 mg PO HS Qty: 90 3RF escitalopram oxalate 20 mg tablet 20 mg PO HS Qty: 90 3RF levothyroxine 75 mcg tablet 75 mcg PO DAILY Qty: 90 3RF multivitamin [Daily Multi-Vitamin] Tablet 1 tab PO HS Discharge Instructions Instructions: Chest Pain, Adult ED Additional Instructions: Seen urgency department today for evaluation of chest pain. In our department you have a full physical examination performed, had laboratory studies that were reassuring, including negative cardiac enzymes. Your EKG also did not show any sign of a heart attack. You did have evidence of a mild elevation in your liver enzymes, condition is transaminitis. Your primary care provider needs to repeat assess your liver enzymes in a few months to make sure these are improving. You need to be reevaluated next few days to discuss this visit and any symptoms that change, worsen, or persist. If your symptoms worsen, or you develop change in responsiveness, shortness of breath, nausea or vomiting, or any other concerning symptoms you can return to the emergency department for reevaluation. Please continue to use Tylenol and diclofenac gel for management of pain, and thank you for allowing us to be part of your care. HPI General Mode of arrival: ambulatory . Date/Time Provider Initiated Documentation: 03/20/24 15:45 . Limitations to Documentation: no limitations . Information obtained by: patient and old records reviewed . HPI Narrative: HPI: This is a 59-year-old female patient with a past medical history significant for hypothyroidism, CKD, hyperlipidemia, who is presenting for evaluation of left-sided chest pain that started while at rest this morning. The patient reports that she was sitting at her desk when she noticed this chest pain, located initially at the lateral aspect of her right breast and kind of moving deeper into her chest over the course of the day. It has also worsened in severity, and she has noted radiation of pain to her left shoulder. The patient's pain is worsened with movement, but does not change with palpation or deep breath. She has not noted any nausea, vomiting, or diaphoresis. No recent injuries or illnesses, she has not had a cough or shortness of breath. The patient has a family history of cardiac disease, her mother had an KY at age 60, her father had an KY at age 85. She herself has no known personal cardiac history. States that she has had an episode of pleurisy in the past, which felt fairly similar. States that she tried 800 mg of ibuprofen at home without improvement in her symptoms. The patient has no personal history of thromboembolic disease, has not had any abdominal or urinary symptoms, denies leg swelling or calf pain. Exam: Gen: Awake and alert, in no apparent distress HEENT: Non-icteric sclera Neck: Supple Lungs: No apparent respiratory distress, normal respiratory effort. Lung sounds clear and equal bilaterally without wheezes, rhonchi, rales CV: Appears well perfused, heart with regular rate and rhythm, strong distal pulses, symmetrical bilaterally. No murmurs auscultated Abdomen: Non-distended, soft MSK: Moves 4 extremities without apparent limitation in ROM, no peripheral edema, no unilateral calf swelling or tenderness Skin: Visualized skin without rashes, cyanosis. Specifically, no rash or skin changes overlying the area of chest pain Neuro: Normal Gait, no obvious focal deficits or facial asymmetry. Speaks in full, clear sentences. Psych: Appropriate for situation. MDM: This is a 59-year-old female patient presenting for evaluation of chest pain. My differential includes but is not limited to ACS including STEMI, NSTEMI, unstable angina. Certainly considered aortic pathology, pneumonia/bronchitis, pleurisy, costochondritis. Considered myocarditis and pericarditis. Considered pneumothorax, pulmonary edema and pleural effusion. I did consider pulmonary embolism though I feel that this is less likely in this patient who is without hypoxia, tachycardia, or pleuritic chest pain. No evidence for herpes zoster, no GI symptoms to suggest Boerhaave's, pancreatitis, GERD/PUD. We obtained and I reviewed an EKG, which shows a normal sinus rhythm without evidence of ischemia, interval abnormality, or ectopy. Will obtain laboratory studies to include CBC, CMP, magnesium, troponin, as well as a chest x-ray. Given her family history as well as her personal risk factors of hyperlipidemia, we will provide the patient with a dose of aspirin, 324 mg. ED Course: I independently interpreted the laboratory studies, which show no significant leukocytosis, anemia, or thrombocytopenia. The chemistry panel is without evidence of electrolyte abnormality, kidney dysfunction, though she does have anemia and mild transaminitis compared to priors. Delta troponin is unchanged and also quite low, making ischemia unlikely. Independently interpreted the patient's chest x-ray, which shows no acute abnormalities to explain her symptoms. On reassessment the patient reports that her pain is worsening, she remains hemodynamically appropriate, and given the reproduction with movement I am most concerned with conditions such as pleurisy or costochondritis. I discussed conservative management with the patient, including Tylenol, and provided him with a prescription for diclofenac gel. She needs to follow-up with her primary care provider for reassessment of any ongoing symptoms, as well as for recheck of transaminitis. At this time, the patient has had a full medical evaluation and is safe for discharge to home. They are hemodynamically stable, ambulatory, and tolerating PO. They are understanding of the follow-up plan and return precautions. They left our facility without incident. Bita Espitia MD Related Data Home Medications ?Medication ?Instructions ?Recorded ?Confirmed multivitamin (Daily Multi-Vitamin 1 tab PO HS 03/21/18 03/20/24 tablet) levothyroxine 75 mcg tablet 75 mcg PO DAILY #90 tabs 03/04/23 03/20/24 escitalopram oxalate 20 mg tablet 20 mg PO HS #90 tabs 03/13/24 03/20/24 rosuvastatin 10 mg tablet 10 mg PO HS #90 tabs 03/13/24 03/20/24 diclofenac sodium 1 % topical gel 2 g topical QID #100 grams 03/20/24 Previous Rx's ?Medication ?Instructions ?Recorded levothyroxine 75 mcg tablet 75 mcg PO DAILY #90 tabs 03/04/23 escitalopram oxalate 20 mg tablet 20 mg PO HS #90 tabs 03/13/24 rosuvastatin 10 mg tablet 10 mg PO HS #90 tabs 03/13/24 diclofenac sodium 1 % topical gel 2 g topical QID #100 grams 03/20/24 Allergies Allergy/AdvReac Type Severity Reaction Status Date / Time dog dander Allergy Mild Tickle in Verified 03/20/24 15:49 throat General Stated Complaint: Chest Pain NATHANIEL: 2 Course Vital Signs Vital signs: Vital Signs Temperature 36.7 C 03/20/24 15:43 Pulse 75 03/20/24 15:43 Respiratory Rate 14 03/20/24 15:43 Blood Pressure 138/81 03/20/24 15:43 Pulse Oximetry 97 03/20/24 15:43 Temperature 36.7 C 03/20/24 15:43 Temperature Source Oral 03/20/24 15:43 Pulse 75 03/20/24 15:43 Respiratory Rate 14 03/20/24 15:43 Blood Pressure 138/81 03/20/24 15:43 Blood Pressure Position Sitting 03/20/24 15:43 Pulse Oximetry 97 03/20/24 15:43 Oxygen Delivery Method Room Air 03/20/24 15:43 Oxygen Flow Rate 0 03/20/24 15:43 Pain Level 5 03/20/24 15:43 Medical Decision Making Quality:SDOH Health Related Social Needs: No Data to Display PFSH All Active Problems (Updated 03/20/24 @ 17:37 by Bita Espitia MD) Transaminitis (Acute) Chest pain of uncertain etiology (Acute) Partial tear of left rotator cuff (Acute) CKD (chronic kidney disease) stage 3, GFR 30-59 ml/min (Chronic) Hypothyroidism (Chronic) Iron deficiency anemia (Chronic) Declines endoscopy Prediabetes (Chronic) Hyperlipidemia (Chronic) Postmenopausal vaginal bleeding (Acute) Major depressive disorder in remission (Chronic) Osteoarthritis (Chronic) Medical History COVID-19 (~04/13/21) Left ureteral calculus GERD (gastroesophageal reflux disease) Surgical History S/P colonoscopy (03/09/19) History of section (04/04/87) S/P tonsillectomy and adenoidectomy Family History Mother Heart disease Hyperlipidemia Hypertension Glaucoma Father Dementia Heart disease Myocardial infarction Sister Hyperlipidemia Hypertension Type 2 diabetes mellitus Depression Brother No problems noted. Son Asthma Son No problems noted. Daughter Depression Daughter Asthma Depression Daughter Asthma Paternal Grandfather Alcohol abuse Paternal Grandmother Alcohol abuse Maternal Grandfather No problems noted. Maternal Grandmother No problems noted. Social History Smoking/Tobacco Use Status: Former Tobacco Use tobacco type: cigarettes Quit Date: 04/15/83 Second Hand Exposure: Yes Smoking risk assessment performed?: Yes Alcohol Intake: current Alcohol Intake frequency: a few times a month Alcohol type: beer, wine and hard liquor Drug use: Never Substance use type: does not use Adopted: No Caregiver/Support person: No Foster care: No Household members: spouse and children Housing: house Number of Children: 5 number of grandchildren: 2 Communication Needs: None Education Level: college Details: Trade Do you need help understanding health information?: Rarely 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 Pets and animals: Yes Pets and animals: dog(s) Sexually active: No Do you think of yourself as: straight/heterosexual Current gender identity: female What is your relationship status?: How often do you talk on the phone with friends or family?: three or more times per week How often do you get together with friends or relatives?: once per week How often do you attend yarsani or mu-ism services?: 4 or more times per year Do you belong to any clubs or organized social groups?: no Panel score (0-1 are the most socially isolated patients): 3 What type of physical activity do you participate in: other Details: strength training Duration: 15-30 minutes/day Cintia/Yarsanism: Adventism Special cintia needs: No Agree to transfusion: Yes Seatbelt use: always Helmet use: Yes Helmet use: always Drive intox or ride w/intox dedicated local truck driver: No Working smoke detector in home: Yes Carbon monox detector in home: Yes Firearms in home: Yes Firearms unloaded and locked: Yes Do you feel safe at home: Yes Do you feel safe in your relationship?: Yes Victim of physical abuse: No Victim of emotional abuse: No Victim of sexual abuse: No Female Reproductive History Menstrual control method: other History History 6 Para 5 Hx # Term Pregnancies Multiple births Hx # Pregnancies Ectopic pregnancies AB induced Hx Number of Living Children 5 AB spontaneous 1
[2024-03-20] MEDS: Aspirin 81 MG CHEW 324 MG CH (16:14)
[2024-03-20 16:15] VITALS: RESP 15
[2024-03-20 16:16] LABS: Abs Immature Grans 0.03 10^3/uL (0.0-0.06); Absolute Basophil Count 0.07 10^3/uL (0.0-0.2); Absolute Eosinophil Count 0.29 10^3/uL (0.0-0.7); Absolute Lymphocyte Count 2.94 10^3/uL (1.2-3.4); Absolute Monocyte Count 0.64 10^3/uL (0.1-0.8); Absolute Neutrophil Count 2.91 10^3/uL (1.2-6.7); Eosinophils % 4.2 %; HCT 36.7 % (36.0-46.0); HGB 11.9 g/dL (11.2-15.7); Immature Grans % 0.4 %; Lymphocytes % 42.7 %; MCH 28.3 pg (27.0-33.0); MCHC 32.4 % (32.0-36.0); MCV 87 fL (80-95); MPV 8.8 fL (8.0-11.0); Monocytes % 9.3 %; Neutrophils % 42.4 %; Platelet Count 235 10^3/uL (130-400); RDW-SD 51.7 fL; WBC 6.88 10^3/uL (4.4-10.8)
[2024-03-20 16:47] LABS: ALT 83 U/L (14-59); AST 68 U/L (15-37); Albumin 4.1 g/dL (3.4-5.0); Alkaline Phosphatase 124 U/L (46-116); Anion Gap 9.8 mmol/L (3-11); BUN 18 mg/dL (7-18); CO2 27.2 mmol/L (21.0-32.0); CREATININE 1.1 mg/dL (0.55-1.02); Chloride 103 mmol/L (98-107); Estimated GFR 57.52 (mL/min/1.73m2); Glucose 112 mg/dL (74-106); Magnesium 2.1 mg/dL (1.8-2.4); Potassium 3.8 mmol/L (3.5-5.1); Sodium 140 mmol/L (136-145); Total Protein 7.8 g/dL (6.4-8.2); Troponin I 6 ng/L (<or=51)
[2024-03-20 17:21] LABS: Troponin I 6 ng/L (<or=51)
[2024-03-20 17:55] VITALS: BP 122/67; PULSE 64; RESP 20; O2SAT 96
--- NOTE | 2024-03-21 12:24 | NUR.NOTE ---
Access chart to get the PCP for patient; to send prior authorization to them for diclofenac sodium 1% gel. Nursing Note:
--- NOTE | 2024-03-24 04:44 | NUR.NOTE ---
Chart accessed to find patient pcp to fax rx form for prior authorization of med rx.Nursing Note:
== END 2024-03-20 17:56 | disposition home or self-care (01) ==
PROVIDERS: Emergency Provider Emergency Medicine; PCP Nurse Practitioner Family
DX: R07.89 Other chest pain (principal); N18.30 Chronic kidney disease, stage 3 unspecified; E03.9 Hypothyroidism, unspecified; E78.5 Hyperlipidemia, unspecified; R74.01 Elevation of levels of liver transaminase levels
CPT/HCPCS: 36415; 80053; 93005; 99285; 71046; 83735; 84484; 85025; 93010

== ENCOUNTER 2024-04-21 03:01 | Outpatient (CLI) | payer BC, SELFPAY ==
[2024-04-21 16:39] LABS: Hemoglobin A1C 6.1 % (<5.7)
[2024-04-21 17:47] LABS: ALT 54 U/L (14-59); AST 45 U/L (15-37); Alkaline Phosphatase 128 U/L (46-116); Bilirubin, Direct 0.1 mg/dL (0.0-0.2); Bilirubin, Total 0.57 mg/dL (0.2-1.0); Ferritin 28 ng/mL (8-252); TSH (W/Ref FT4) 0.15 uIU/mL (0.36-3.74); Vitamin D 25 Total 19.4 ng/mL (30-100)
[2024-04-22 19:05] LABS: Parathyroid Hormone,Intact 73.3 pg/mL (19.0-88.0)
[2024-04-22 19:46] LABS: HBs Antibody, Quant <3.1 mIU/mL (See Note); Hep B Surface Ab Negative (See Note); Hepatitis B Core Antibody Negative (Negative); Hepatitis B Surface Antigen Negative (Negative)
[2024-04-22 20:07] LABS: HIV-1/2 Ag & Ab Screen Negative (Negative)
[2024-04-22 20:10] LABS: Hepatitis C Ab w Rflx HCV PCR Negative (Negative)
== END 2024-04-21 03:02 | disposition home or self-care (01) ==
LOC: LBO 03:01
PROVIDERS: PCP Nurse Practitioner Family; Visit Provider Nurse Practitioner Family
DX: N18.30 Chronic kidney disease, stage 3 unspecified (principal); R73.03 Prediabetes; D50.9 Iron deficiency anemia, unspecified; Z11.59 Encounter for screening for other viral diseases; Z11.4 Encounter for screening for human immunodeficiency virus [HIV]; R74.01 Elevation of levels of liver transaminase levels
CPT/HCPCS: 36415; 80076; 82306; 86704; 86706; 86803; 87340; 87389; 81003; 82728; 83036; 83970; 84439; 84443

== ENCOUNTER 2024-05-13 02:44 | Outpatient (CLI) | payer BC, SELFPAY ==
--- NOTE | 2024-05-13 08:00 | DI.MAMMO_ITS ---
Exam(s) MAMMO SCREENING EXAM: MAMMO SCREENING CLINICAL HISTORY: screening,Z12.39 TECHNIQUE: Bilateral full field digital CC and MLO mammographic images were obtained with 3D tomosyn thesis and utilizing computer aided detection (CAD). COMPARISON: Available for comparison. FINDINGS: Masses/Architectural Distortion: The asymmetric density in the upper outer quadrant of the right yoly st appears stable. No new nodules or masses are seen. No areas of architectural distortion are pres ent. Microcalcifications: No suspicious pleomorphic-type are seen. Skin Thickening/Nipple Retraction: None. IMPRESSION: 1. No significant interval change with no specific features of malignancy noted. 2. Unless there is more urgent need, screening mammography is recommended, as per [employer] guidelines. BI-RADS Category 2 - Benign Findings Breast Density - Category B - Scattered areas of fibroglandular density Breast density category C or D implies that the patient has dense breast tissue. Dense breast tissue is very common and is not abnormal but dense breast tissue can make it harder to find cancer on a ma mmogram. Also, dense breast tissue may increase their breast cancer risk. This information about the result of the mammogram report was provided to the patient to raise their awareness. Use this report when you speak with the patient about their risks for breast cancer, which includes their family hist ory. At that time, you may recommend for more screening tests (Ultrasound or MRI) as they might be us eful based on their risk. A negative radiographic report should not delay biopsy if a dominant or clinically suspicious mass is present. Up to ten percent of cancers are not identified on mammography. A negative report may reinforce clinical impression. Adenosis and dense breasts may obscure an underlying neoplasm. False positive reports average 6 to 10%. Patient will receive a letter notifying them of these results.
== END 2024-05-13 03:04 ==
LOC: DI 02:44
PROVIDERS: PCP Nurse Practitioner Family; Visit Provider Nurse Practitioner Family
DX: Z12.31 Encounter for screening mammogram for malignant neoplasm of breast (principal); R92.323 Mammographic fibroglandular density, bilateral breasts; D24.1 Benign neoplasm of right breast
CPT/HCPCS: 77063; 77067

== ENCOUNTER 2024-06-18 02:56 | Outpatient (CLI) | payer BC, SELFPAY ==
[2024-06-18 16:58] LABS: TSH (W/Ref FT4) 1.47 uIU/mL (0.36-3.74)
[2024-06-19 06:58] LABS: Lab Add On Test DONE
[2024-06-19 07:38] LABS: Vitamin D 25 Total 25 ng/mL (30-100)
== END 2024-06-18 02:57 | disposition home or self-care (01) ==
PROVIDERS: PCP Nurse Practitioner Family; Visit Provider Nurse Practitioner Family
DX: E03.9 Hypothyroidism, unspecified (principal); E55.9 Vitamin D deficiency, unspecified
CPT/HCPCS: 36415; 82306; 84443

== ENCOUNTER 2024-07-03 22:47 | Outpatient (REF) | payer BC, SELFPAY | END 2024-07-03 22:48 | disposition home or self-care (01) | LOC: LBN 22:47 | PROVIDERS: PCP Nurse Practitioner Family; Visit Provider Physician Assistant Medical | DX: J02.9 Acute pharyngitis, unspecified (principal) | CPT/HCPCS: 87070 ==

== ENCOUNTER 2024-07-23 14:30 | Emergency (ER) | payer OTHER, BC, SELFPAY ==
[2024-07-23 14:35] VITALS: BP 125/74; PULSE 97; RESP 20; TEMP 36.6; O2SAT 98
--- NOTE | 2024-07-23 14:53 | ED.GENADUL_ITS ---
Discharge Plan Disposition Patient Disposition: Home Condition: Good Discharge Details Clinical Impression: Laceration of right thumb Primary Care Provider: Lina Villeda ED Provider: Titi Diego Home Meds and New Rx's Prescriptions: No Action rosuvastatin 10 mg tablet 10 mg PO HS Qty: 90 3RF escitalopram oxalate 20 mg tablet 20 mg PO HS Qty: 90 3RF cholecalciferol (vitamin D3) 50 mcg (2,000 unit) capsule 2,000 unit PO DAILY Qty: 90 3RF Rx Instructions: Take 1 daily after the 8 weeks of the 50,000unit dose levothyroxine 125 mcg tablet 62.5 mcg PO DAILY Qty: 50 3RF multivitamin [Daily Multi-Vitamin] Tablet 1 tab PO HS Discharge Instructions Instructions: Laceration Repair With Stitches ED Additional Instructions: Please keep the area clean and dry. Monitor closely for any redness, drainage or discharge. For nonabsorbable sutures, please return in 7 to 10 days to have the wound reassessed and the sutures removed. If you come back to the emergency department here it will be free of charge for the suture removal. For long-term scar cosmesis, please make sure to avoid any sun to the area for the next year. Apply moisturizer or vitamin E to the area twice daily for the next 12 months for the best chance of wound/scar medication. Please take a daily multivitamin as well as this can help in wound healing. If you notice any worsening of your symptoms, or any new symptoms such as spreading redness, drainage, vomiting, diarrhea, fever, chills, shortness of breath, chest pain, numbness, weakness, or fainting , please return immediately to the emergency department for reevaluation. Please follow up with your primary care provider as soon as possible for reassessment and reevaluation. As always, it was a pleasure participating in your medical care today. Referrals: Lina Villeda NP [Primary Care Provider] - [facility] General Date/Time Provider Initiated Documentation: 07/23/24 14:38 . HPI Narrative: This is a pleasant 59-year-old female with a past medical history of high cholesterol, prediabetic, hypothyroidism, who presents today for evaluation of a laceration to her right thumb. She is right-hand dominant. She was using a metal tape measure when the tape came back and sliced her thumb. Tetanus was updated 1 year ago. She denies any numbness or tingling. She has normal movement and sensation otherwise. She came for laceration repair. Related Data Home Medications ?Medication ?Instructions ?Recorded ?Confirmed multivitamin (Daily Multi-Vitamin 1 tab PO HS 03/21/18 07/23/24 tablet) escitalopram oxalate 20 mg tablet 20 mg PO HS #90 tabs 03/13/24 07/23/24 rosuvastatin 10 mg tablet 10 mg PO HS #90 tabs 03/13/24 07/23/24 cholecalciferol (vitamin D3) 50 2,000 unit PO DAILY #90 caps 04/21/24 07/23/24 mcg (2,000 unit) capsule levothyroxine 125 mcg tablet 62.5 mcg (1/2 x 125 mcg) PO DAILY 06/19/24 07/23/24 #50 tabs Previous Rx's ?Medication ?Instructions ?Recorded escitalopram oxalate 20 mg tablet 20 mg PO HS #90 tabs 03/13/24 rosuvastatin 10 mg tablet 10 mg PO HS #90 tabs 03/13/24 cholecalciferol (vitamin D3) 50 2,000 unit PO DAILY #90 caps 04/21/24 mcg (2,000 unit) capsule levothyroxine 125 mcg tablet 62.5 mcg (1/2 x 125 mcg) PO DAILY 06/19/24 #50 tabs Allergies Allergy/AdvReac Type Severity Reaction Status Date / Time dog dander AdvReac Wheezing Verified 07/23/24 14:34 General Stated Complaint: Laceration NATHANIEL: 4 Exam Narrative Exam Narrative: 1.Const: Well-nourished, Well-developed, appearing stated age 2.Eyes: PERRL, no conjunctival injection, and symmetrical lids. 3.ENT: Atraumatic external nose and ears. Moist MM. Neck: Symmetric, trachea midline, No thyromegaly. 4.CVS: +S1/S2, Peripheral pulses 2+ and equal in all extremities. Brisk capillary refill in all extremities. 5.RESP: Unlabored respiratory effort. Clear to auscultation bilaterally. No wheezes rales or rhonchi 6.GI: Soft, Nontender/Nondistended, No hepatosplenomegaly. No guarding or rebound. 7.MSK: Normocephalic/Atraumatic, Extremities w/o deformity or ttp No cyanosis or clubbing, Normal movement of all extremities. Patient demonstrates normal movement of the right thumb in all directions for opposition and flexion. Normal sensation throughout. Brisk capillary refill. Small 1.5 to 2 cm laceration is noted on the dorsal aspect at the MCP joint for the thumb. No other bleeding. 8.Skin: Warm, Dry. 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 Sensation grossly intact, no focal neurologic deficits. 10.Psych: (AAO) x3. Appropriate mood and affect Course Vital Signs Vital signs: Vital Signs Temperature 36.6 C 07/23/24 14:35 Pulse 97 H 07/23/24 14:35 Respiratory Rate 20 07/23/24 14:35 Blood Pressure 125/74 07/23/24 14:35 Pulse Oximetry 98 07/23/24 14:35 Temperature 36.6 C 07/23/24 14:35 Temperature Source Oral 07/23/24 14:35 Pulse 97 H 07/23/24 14:35 Respiratory Rate 20 07/23/24 14:35 Blood Pressure 125/74 07/23/24 14:35 Blood Pressure Position Sitting 07/23/24 14:35 Pulse Oximetry 98 07/23/24 14:35 Oxygen Delivery Method Room Air 07/23/24 14:35 Oxygen Flow Rate 0 07/23/24 14:35 Pain Level 0 07/23/24 14:35 Procedure Laceration Laceration 1: Date of Procedure: 07/23/24 Time of procedure: 15:12 Provider that performed the procedure: Titi Diego Standard Time Out Performed: Yes Patient Consented: Verbally Site: hand (Right thumb) Side (If applicable): right Description: linear Depth: simple, single layer Pre-repair:: wound explored, irrigated extensively and deep structures intact Skin layer closed with: nylon Suture size: 5-0 Number of sutures:: 3 Technique: simple, interrupted Medical Decision Making This is a pleasant 59-year-old female with a past medical history of high cholesterol, prediabetic, hypothyroidism, who presents today for evaluation of a laceration to her right thumb. She is right-hand dominant. She was using a metal tape measure when the tape came back and sliced her thumb. Tetanus was updated 1 year ago. She denies any numbness or tingling. She has normal movement and sensation otherwise. She came for laceration repair. Patient demonstrates normal movement of the right thumb in all directions for opposition and flexion. Normal sensation throughout. Brisk capillary refill. Small 1.5 to 2 cm laceration is noted on the dorsal aspect at the MCP joint for the thumb. No other bleeding. The area was cleansed and washed thoroughly with chlorhexidine and water. Lidocaine was applied, patient was subsequently sutured with no complications. 3 simple interrupted 5-0 sutures were placed. Area was bandaged. Patient tolerated this well. Discussed red flags for which to return. Wound was notably superficial and not deep. No evidence of bony involvement tendinous damage or neurovascular compromise. Wound was clean, and no indication for antibiotics. I have extensively reviewed the treatment plan and discharge instructions with the patient. I have addressed all patient concerns at this time. The patient was made aware of what symptoms to monitor for that would warrant a return to the emergency department. Discussed the plan with the patient, they demonstrate verbal understanding and agreement with our assessment and plan at this time. The documentation in this chart was dictated using [employer] dictation software. Please excuse any dictation errors. Quality:SDOH Health Related Social Needs: No Data to Display PFSH All Active Problems (Updated 07/23/24 @ 14:57 by Titi Diego DO) Laceration of right thumb (Acute) Partial tear of left rotator cuff (Acute) CKD (chronic kidney disease) stage 3, GFR 30-59 ml/min (Chronic) Hypothyroidism (Chronic) Iron deficiency anemia (Chronic) Declines endoscopy Prediabetes (Chronic) Hyperlipidemia (Chronic) Postmenopausal vaginal bleeding (Acute) Major depressive disorder in remission (Chronic) Osteoarthritis (Chronic) Vitamin D deficiency (Chronic) Medical History (Updated 07/23/24 @ 14:57 by Titi Diego DO) Left ureteral calculus GERD (gastroesophageal reflux disease) Surgical History S/P colonoscopy (03/09/19) History of section (04/04/87) S/P tonsillectomy and adenoidectomy Family History Mother Heart disease Hyperlipidemia Hypertension Glaucoma Father Dementia Heart disease Myocardial infarction Sister Hyperlipidemia Hypertension Type 2 diabetes mellitus Depression Brother No problems noted. Son Asthma Son No problems noted. Daughter Depression Daughter Asthma Depression Daughter Asthma Paternal Grandfather Alcohol abuse Paternal Grandmother Alcohol abuse Maternal Grandfather No problems noted. Maternal Grandmother No problems noted. Social History Smoking/Tobacco Use Status: Former Tobacco Use tobacco type: cigarettes Quit Date: 04/15/83 Second Hand Exposure: Yes Smoking risk assessment performed?: Yes Alcohol Intake: current Alcohol Intake frequency: a few times a month Alcohol type: beer, wine and hard liquor Drug use: Never Substance use type: does not use Adopted: No Caregiver/Support person: No Foster care: No Household members: spouse and children Housing: house Number of Children: 5 number of grandchildren: 2 Communication Needs: None Education Level: college Details: Trade Do you need help understanding health information?: Rarely 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 Pets and animals: Yes Pets and animals: dog(s) Sexually active: No Do you think of yourself as: straight/heterosexual Current gender identity: female What is your relationship status?: How often do you talk on the phone with friends or family?: three or more times per week How often do you get together with friends or relatives?: once per week How often do you attend pentecostal or restoration services?: 4 or more times per year Do you belong to any clubs or organized social groups?: no Panel score (0-1 are the most socially isolated patients): 3 What type of physical activity do you participate in: other Details: strength training Duration: 15-30 minutes/day Cintia/Gnosticism: Jainism Special cintia needs: No Agree to transfusion: Yes Seatbelt use: always Helmet use: Yes Helmet use: always Drive intox or ride w/intox guard driver: No Working smoke detector in home: Yes Carbon monox detector in home: Yes Firearms in home: Yes Firearms unloaded and locked: Yes Do you feel safe at home: Yes Do you feel safe in your relationship?: Yes Victim of physical abuse: No Victim of emotional abuse: No Victim of sexual abuse: No Female Reproductive History Menstrual control method: other History History 6 Para 5 Hx # Term Pregnancies Multiple births Hx # Pregnancies Ectopic pregnancies AB induced Hx Number of Living Children 5 AB spontaneous 1
== END 2024-07-23 15:16 | disposition home or self-care (01) ==
PROVIDERS: Emergency Provider Student in an Organized Health Care Education/Training Program; PCP Nurse Practitioner Family
DX: S61.011A Laceration without foreign body of right thumb without damage to nail, initial encounter (principal); N18.30 Chronic kidney disease, stage 3 unspecified; E78.5 Hyperlipidemia, unspecified; E03.9 Hypothyroidism, unspecified; Z87.891 Personal history of nicotine dependence; W27.8XXA Contact with other nonpowered hand tool, initial encounter; Y93.89 Activity, other specified
CPT/HCPCS: 12001; 99283

== ENCOUNTER 2024-07-31 13:42 | Emergency (ER) | payer BC, SELFPAY ==
[2024-07-31 13:48] VITALS: BP 135/74; PULSE 71; RESP 16; TEMP 36.8; O2SAT 97
--- NOTE | 2024-07-31 14:01 | ED.GENADUL_ITS ---
Discharge Plan Disposition Patient Disposition: Home Condition: Stable Discharge Details Clinical Impression: Visit for suture removal Primary Care Provider: Lina Villeda ED Provider: Karan Talamantes Home Meds and New Rx's Prescriptions: Continued rosuvastatin 10 mg tablet 10 mg PO HS Qty: 90 3RF escitalopram oxalate 20 mg tablet 20 mg PO HS Qty: 90 3RF cholecalciferol (vitamin D3) 50 mcg (2,000 unit) capsule 2,000 unit PO DAILY Qty: 90 3RF Rx Instructions: Take 1 daily after the 8 weeks of the 50,000unit dose levothyroxine 125 mcg tablet 62.5 mcg PO DAILY Qty: 50 3RF multivitamin [Daily Multi-Vitamin] Tablet 1 tab PO HS Discharge Instructions Additional Instructions: If you have any signs of infection such as spreading redness from the wound or worsening pain return to the emergency department for reevaluation. Otherwise follow-up with your primary care provider as needed. HPI General Mode of arrival: ambulatory . Date/Time Provider Initiated Documentation: 07/31/24 13:55 . Limitations to Documentation: no limitations . Information obtained by: patient . History of Present Illness 59 year old F presents to the emergency department with the chief complaint of suture removal, described as mild, Quality is described as aching, Patient started experiencing this day(s) (8) and it has been constant. No relieving factors improve symptom(s), No exacerbating factors reported . Patient notes no other symptoms.. Related Data Home Medications ?Medication ?Instructions ?Recorded ?Confirmed multivitamin (Daily Multi-Vitamin 1 tab PO HS 03/21/18 07/28/24 tablet) escitalopram oxalate 20 mg tablet 20 mg PO HS #90 tabs 03/13/24 07/28/24 rosuvastatin 10 mg tablet 10 mg PO HS #90 tabs 03/13/24 07/28/24 cholecalciferol (vitamin D3) 50 2,000 unit PO DAILY #90 caps 04/21/24 07/28/24 mcg (2,000 unit) capsule levothyroxine 125 mcg tablet 62.5 mcg (1/2 x 125 mcg) PO DAILY 06/19/24 07/28/24 #50 tabs Previous Rx's ?Medication ?Instructions ?Recorded escitalopram oxalate 20 mg tablet 20 mg PO HS #90 tabs 03/13/24 rosuvastatin 10 mg tablet 10 mg PO HS #90 tabs 03/13/24 cholecalciferol (vitamin D3) 50 2,000 unit PO DAILY #90 caps 04/21/24 mcg (2,000 unit) capsule levothyroxine 125 mcg tablet 62.5 mcg (1/2 x 125 mcg) PO DAILY 06/19/24 #50 tabs Allergies Allergy/AdvReac Type Severity Reaction Status Date / Time dog dander AdvReac Wheezing Verified 07/28/24 14:40 General Stated Complaint: SutureRem NATHANIEL: 5 Review of Systems All systems reviewed & are unremarkable except as noted in HPI and below Constitutional Constitutional: Denies chills, Denies fever(s) and Denies weakness Cardiovascular Cardiovascular: Denies chest pain and Denies dyspnea Respiratory Respiratory: Denies cough and Denies dyspnea Gastrointestinal Gastrointestinal: Denies abdominal pain, Denies nausea and Denies vomiting Musculoskeletal Musculoskeletal: Denies joint swelling Neurologic Neurologic: Denies weakness Exam Const General: no acute distress Orientation: alert HENMT Head: normal to inspection Ears: external ears normal General nose exam: external nose normal Mouth: moist mucous membranes Eyes General: appearance normal, both eyes and all related structures Neck Neck: normal visual inspection Resp Effort & Inspection: normal respiratory effort and able to speak in complete sentences Cardio Rate: regular rate Skin General skin exam: no rashes or lesions noted Neuro General: patient alert and patient oriented x3 Extrem General: full ROM Psych Mental Status: mental status grossly normal Course Vital Signs Vital signs: Vital Signs Temperature 36.8 C 07/31/24 13:48 Pulse 71 07/31/24 13:48 Respiratory Rate 16 07/31/24 13:48 Blood Pressure 135/74 07/31/24 13:48 Pulse Oximetry 97 07/31/24 13:48 Temperature 36.8 C 07/31/24 13:48 Temperature Source Oral 07/31/24 13:48 Pulse 71 07/31/24 13:48 Respiratory Rate 16 07/31/24 13:48 Blood Pressure 135/74 07/31/24 13:48 Pulse Oximetry 97 07/31/24 13:48 Pain Level 1 07/31/24 13:48 Medical Decision Making Patient had sutures placed in right thumb 8 days ago and here for suture removal. States she has no severe pain or discharge from the wound. She has a well-healing wound on the medial aspect of her mid thumb. This no surrounding erythema or signs of infection. The wound appears ready to have the sutures removed, nursing will remove the stitches. Advised to return if any signs of infection. Quality:SDOH Health Related Social Needs: No Data to Display [facility] All Active Problems (Updated 07/31/24 @ 14:02 by Karan Talamantes MD) Visit for suture removal (Acute) Laceration of right thumb (Acute) Partial tear of left rotator cuff (Acute) CKD (chronic kidney disease) stage 3, GFR 30-59 ml/min (Chronic) Hypothyroidism (Chronic) Iron deficiency anemia (Chronic) Declines endoscopy Prediabetes (Chronic) Hyperlipidemia (Chronic) Postmenopausal vaginal bleeding (Acute) Major depressive disorder in remission (Chronic) Osteoarthritis (Chronic) Vitamin D deficiency (Chronic) Medical History Left ureteral calculus GERD (gastroesophageal reflux disease) Surgical History S/P colonoscopy (03/09/19) History of section (04/04/87) S/P tonsillectomy and adenoidectomy Family History Mother Heart disease Hyperlipidemia Hypertension Glaucoma Father Dementia Heart disease Myocardial infarction Sister Hyperlipidemia Hypertension Type 2 diabetes mellitus Depression Brother No problems noted. Son Asthma Son No problems noted. Daughter Depression Daughter Asthma Depression Daughter Asthma Paternal Grandfather Alcohol abuse Paternal Grandmother Alcohol abuse Maternal Grandfather No problems noted. Maternal Grandmother No problems noted. Social History Smoking/Tobacco Use Status: Former Tobacco Use tobacco type: cigarettes Quit Date: 04/15/83 Second Hand Exposure: Yes Smoking risk assessment performed?: Yes Alcohol Intake: current Alcohol Intake frequency: a few times a month Alcohol type: beer, wine and hard liquor Drug use: Never Substance use type: does not use Adopted: No Caregiver/Support person: No Foster care: No Household members: spouse and children Housing: house Number of Children: 5 number of grandchildren: 2 Communication Needs: None Education Level: college Details: Trade Do you need help understanding health information?: Rarely 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 Pets and animals: Yes Pets and animals: dog(s) Sexually active: No Do you think of yourself as: straight/heterosexual Current gender identity: female What is your relationship status?: How often do you talk on the phone with friends or family?: three or more times per week How often do you get together with friends or relatives?: once per week How often do you attend moravian or restorationist services?: 4 or more times per year Do you belong to any clubs or organized social groups?: no Panel score (0-1 are the most socially isolated patients): 3 What type of physical activity do you participate in: other Details: strength training Duration: 15-30 minutes/day Cintia/Yazidism: Restorationist Special cintia needs: No Agree to transfusion: Yes Seatbelt use: always Helmet use: Yes Helmet use: always Drive intox or ride w/intox local intermodal truck driver: No Working smoke detector in home: Yes Carbon monox detector in home: Yes Firearms in home: Yes Firearms unloaded and locked: Yes Do you feel safe at home: Yes Do you feel safe in your relationship?: Yes Victim of physical abuse: No Victim of emotional abuse: No Victim of sexual abuse: No Female Reproductive History Menstrual control method: other History History 6 Para 5 Hx # Term Pregnancies Multiple births Hx # Pregnancies Ectopic pregnancies AB induced Hx Number of Living Children 5 AB spontaneous 1
== END 2024-07-31 14:07 | disposition home or self-care (01) ==
PROVIDERS: Emergency Provider Emergency Medicine; PCP Nurse Practitioner Family
DX: S61.011D Laceration without foreign body of right thumb without damage to nail, subsequent encounter (principal); X58.XXXA Exposure to other specified factors, initial encounter

== ENCOUNTER 2025-03-17 15:03 | Outpatient (REF) | payer BC, SELFPAY ==
--- NOTE | 2025-03-17 14:30 | PAPFT_PTH ---
PATIENT: Radha Obando LOC: [facility] U#:[id number] AGE/SX: 60/F ROOM: RE03/17/[address]: CRISTINA Yao : 1965 BED: DIS: 03/17/2025 SPEC #: [id number] RECD: 03/18/25 13:12 STATUS: TATIANA REMalini #: [id number] SIM: 03/17/25 14:[address]: Lina Villeda DEPT: [facility] Cytology RECD BY: Patito Hampton Tissues: 1 - CX/ENDOCX FOR PAP SMEARS Procedures: PAP THIN PREP/[facility] Screening HPV DNA PROBE Comments: [id number] (HPV 16 & 18/45)
[2025-03-17 18:52] LABS: Glucose Negative (Negative)
[2025-03-17 18:55] LABS: Prot/Crea Ur Ratio 0.05 mg/mg Cr
== END 2025-03-17 15:04 | disposition home or self-care (01) ==
LOC: LBN 15:03
PROVIDERS: PCP Nurse Practitioner Family; Visit Provider Nurse Practitioner Family
DX: N18.30 Chronic kidney disease, stage 3 unspecified (principal); Z12.4 Encounter for screening for malignant neoplasm of cervix
CPT/HCPCS: 88142; 81003; 82043; 82565; 82570; 84156; 87624